=== PATIENT | female | born 1985 | race Caucasian/White ===

== ENCOUNTER → 2020-01-12 07:04 | Outpatient (CLI) | payer OTHER, SELFPAY ==
--- NOTE | ~2020-01-12 | MR_ITS ---
EXAMINATION: MR cervical spine wo con DATE: 01/12/2020 07:54 INDICATION: Neck pain with numbness and tingling radiating down the left shoulder. TECHNIQUE: Magnetic resonance imaging (MRI) of the cervical spine was performed without intravenous c ontrast. Sequences included sagittal T2-weighted FSE, sagittal T2-weighted FS FSE, sagittal T1-weight ed FSE, axial MERGE and axial T2-weighted FSE. COMPARISON: None FINDINGS: Straightening of the normal cervical lordosis. Vertebral body heights are normal. T1 and T2 hyperint ense hemangiomas at the T1 vertebral body and C7 spinous process. Marrow signal is otherwise normal. Mild disc height loss with annular fissure and disc extrusion at C5-C6. Cord signal intensity is norm al. Cervical soft tissues are unremarkable. The following disc levels are specifically discussed: C2-C3: The disc does not extend beyond the endplate margin. There is no uncovertebral joint osteoarth ritis. There is mild bilateral facet joint osteoarthritis. There is no neural foraminal stenosis. The re is no central canal stenosis. C3-C4: The disc does not extend beyond the endplate margin. There is no uncovertebral joint osteoarth ritis. There is mild bilateral facet joint osteoarthritis. There is no neural foraminal stenosis. The re is no central canal stenosis. C4-C5: The disc does not extend beyond the endplate margin. There is mild bilateral uncovertebral richard nt osteoarthritis. There is mild bilateral facet joint osteoarthritis. There is no neural foraminal s tenosis. There is no central canal stenosis. C5-C6: Posterior disc extrusion with disc material extending up to 3 mm caudal to the level of the pina perior endplate of C6. There is moderate bilateral uncovertebral joint osteoarthritis. There is mild left and minimal right facet joint osteoarthritis. There is mild bilateral neural foraminal stenosis. There is mild central canal stenosis with slight indention of the ventral surface of the cord. C6-C7: The disc does not extend beyond the endplate margin. There is no uncovertebral joint osteoarth ritis. There is mild right and mild to moderate left facet joint osteoarthritis. There is no neural f oraminal stenosis. There is no central canal stenosis. C7-T1: The disc does not extend beyond the endplate margin. There is mild bilateral uncovertebral richard nt osteoarthritis. There is moderate left and mild to moderate right facet joint osteoarthritis. Ther e is mild bilateral neural foraminal stenosis. There is no central canal stenosis. IMPRESSION: 1. Mild cervical spondylosis most notable for annular fissure and disc extrusion at C5-C6 resulting i n mild central canal stenosis. Reviewed, dictated and finalized at location A. IMPRESSION: 1. Mild cervical spondylosis most notable for annular fissure and disc extrusio n at C5-C6 resulting in mild central canal stenosis.
== END ==
DX: M54.2 Cervicalgia (principal); R20.0 Anesthesia of skin; R20.2 Paresthesia of skin; M47.812 Spondylosis without myelopathy or radiculopathy, cervical region; M48.02 Spinal stenosis, cervical region
CPT/HCPCS: 72141

== ENCOUNTER 2023-07-31 22:37 | Emergency (ER) | payer OTHER, SELFPAY ==
[2023-07-31 22:41] VITALS: BP 120/77; PULSE 107; RESP 18; TEMP 37; O2SAT 100
--- NOTE | 2023-07-31 23:30 | PC.NURSE ---
pt. ambulatory to front end web developer stating I am just going to go home. PT. NAD upon departure.
== END 2023-08-01 00:58 | disposition left against medical advice (07) ==
LOC: ANHED 08-01 00:39
DX: R50.9 Fever, unspecified (principal)
CPT/HCPCS: 99199

== ENCOUNTER 2025-03-11 02:29 | Day surgery (SDC) | payer OTHER, SELFPAY ==
[2025-03-02 14:34] VITALS: BMI 46.6
--- NOTE | 2025-03-02 14:35 | PC.NURSE ---
Report to the Outpatient Waiting Room, entrance under the green pavilion located off [facility], at time _0730_ on date _[id number]_. Planned Procedure Time: _0930_.? Time changes happen often and if your time is changed the preop area will call you the afternoon before. - You and your visitor will be asked to self-screen and do not enter if you have any COVID symptoms. Please call surgeon if you need to reschedule. - A mask is optional within the hospital at this time. Patients may have clear liquids (water, carbonated beverages, clear teas, apple juice) until 3 hours prior to surgery with a maximum of 20 ounces. - No food from midnight until time of surgery and no smoking, or chewing tobacco (or any form of nicotine). No chewing gum, candy or mints. Take only the following medications with a SIP of water on the morning of surgery: ___Symbicort, Spiriva and if needed Albuterol DO NOT STOP ANY OF YOUR OTHER PRESCRIPTION MEDICATIONS PRIOR TO SURGERY EXCEPT THE FOLLOWING Hold all vitamins and supplements for 3 days per anesthesiologist. Medications to discontinue per physician Date to take last soxn___[phone]____ Please no make-up, nail italian, hairspray, perfume, deodorant, or body powder the day of surgery.? No jewelry (including any body piercings) or valuables the day of surgery, leave them at home.? Please take a shower or bath the night before, or the morning of, surgery with an antibacterial soap.? Wear comfortable, loose fitting clothing.? - Jewelry must be removed prior to entering the operating room.? Rings and piercings that are not removed may be cut off. - The hospital will not accept responsibility for valuables.? - Please leave all valuables, including medications, at home the day of surgery. If you are going home after surgery, a licensed rickshaw driver must drive you home.? - NO public transportation without another adult if you receive anesthesia. - We recommend that an adult stay with you for 24 hours following discharge. - We also recommend that you do not drive, make important decision, drink alcoholic beverages, or take any drugs that were not prescribed by your health care provider for at least 24 hours after your discharge time. Follow any additional instructions given to you from your surgeon. Telephone instructions given to __Yoselin___and asked if any additional questions and then verbalized understanding. Patient advised to call surgeon office or pre surgery nurse liaison [phone] if any additional questions.
--- OUTSIDE RECORDS SUMMARY | 2025-03-11 02:47 | XMS_ITS | Data Portability ---
Author Organization [facility] [place] Address [address] [place] [address] Assessment No assessment recorded. Plan of Treatment Reminders Order Date Submit Date Provider Last Modified By Organization Details Last Modified Time Details Appointments None recorded. Lab None recorded. Referral None recorded. Procedures None recorded. Surgeries None recorded. Imaging None recorded. Medication Orders Bisi Allergy 180 mg tablet 2020 [facility], [address] [place] [address], [id number], 13:10:23 montelukas t 10 mg tablet 2020 [facility], [address] [place] [address], [id number], 13:10:21 losartan 25 mg tablet 2020 [facility], [address] [place] [address], [id number], 13:10:21 Qvar RediHaler 80 mcg/actuat ion HFA breath activated aerosol 2020 [facility], [address] [place] [address], [id number], 11:07:06 Ventolin HFA 90 mcg/actuat ion aerosol inhaler 2020 [facility], [address] [place] [address], [id number], 10/25/202 1 11:07:06 Zithromax Z-Allen 250 mg tablet 2020 021 [facility], [address] [place] [address], [id number], 1 11:07:07 albuterol sulfate 2.5 mg/3 mL (0.083 %) solution for nebulizati on 2020 [facility], [address] [place] [address], [id number], 1 11:07:05 Medrol (Allen) 4 mg tablets in a dose pack 2020 021 [facility], [address] [place] [address], [id number], 1 11:07:04 Medrol (Allen) 4 mg tablets in a dose pack 2020 021 [facility], [address] [place] [address], [id number], 1 14:08:31 Zithromax Z-Allen 250 mg tablet 2020 021 [facility], [address] [place] [address], [id number], 1 14:04:31 Qvar RediHaler 80 mcg/actuat ion HFA breath activated aerosol 2020 021 [facility], [address] [place] [address], [id number], 1 15:03:27 Ventolin HFA 90 mcg/actuat ion aerosol inhaler 2020 021 [facility], [address] [place] [address], [id number], 1 15:03:25 albuterol sulfate 2.5 mg/3 mL (0.083 %) solution for nebulizati on 2020 [facility], [address] [place] [address], [id number], 15:03:26 Zithromax Z-Allen 250 mg tablet 2020 [facility], [address] [place] [address], [id number], 12:37:02 Zithromax Z-Allen 250 mg tablet 2020 [facility], [address] [place] [address], [id number], 12:37:02 Medrol (Allen) 4 mg tablets in a dose pack 2020 [facility], [address] [place] [address], [id number], 14:16:11 Patient TargetsNo targets recorded. Patient Instructions Encounter Date Encounter Id Patient Instructions Last Modified By Organization Details Last Modified Time 05/08/2021 [id number] controlling your asthma: care instructions [facility] Not available 05/08/2021 15:02:41 learning about asthma [facility] Not available 05/08/2021 15:02:42 05/26/2021 [id number] chronic obstructive pulmonary disease (COPD): care instructions [facility] Not available 05/26/2021 14:05:22 learning about copd and how to prevent lung infections si Not available 05/26/2021 14:05:22 08/07/2021 [id number] bronchitis: care instructions [facility] Not available 08/07/2021 11:05:10 08/11/2021 [id number] seasonal allergies: care instructions [facility] Not available 08/11/2021 13:09:27 Reason for Referral None Reported. Problems Name Problem SNOMED Code Status Onset Date Resolution Date Notes Provider Name and Address Organization Details Recorded Time Acute bronchitis 99429478 Active Not Available [facility] 07:05:11 Hypothyroi dism 87437711 Active Not Available [facility] 3 07:05:12 Influenza 0809176 Active Not Available [facility] 3 07:05:12 Asthma 533972304 Active Not Available [facility] 3 07:05:11 Acute otitis media 5828829 Active Not Available [facility] 3 07:05:12 Obesity 402195717 Active Not Available [facility] 3 07:05:12 Anterior knee pain 308880489 Active Not Available [facility] 3 07:05:11 Migraine 60725182 Active Not Available [facility] 3 07:05:12 Lesion of scalp 587453759657 Active Not Available [facility] 3 07:05:12 Tinea corporis 57289929 Active Not Available [facility] 3 07:05:12 Problem Notes None recorded. Procedures Surgical History Date Name Laterality Status Provider Name and Address Organization Details Recorded Time Tubal Ligation completed Fern Rena [place] - [place] 09/08/2014 16:00:57 Tonsillectomy completed Fern Rena [place] - [facility] 09/08/2014 16:00:57 Imaging Results None recorded. Procedure Notes None recorded. Medical Equipment None Reported. Allergies Allergen ID Allergen Name Allergen Category Reaction Reaction Severity Criticality Documentation Date Start Date Code Code System Note Provider Name and Address Organization Details Recorded Time 548707 Product containin g penicilli n (product) medicatio n facial swelling severe Not available 02/05/2020 98864 8001 SNOMED KELSEY Fishman, [place] - [place] 0 12:12:53 222669 theophyll ine medicatio n Not available Not available Not available 02/05/2020 22081 RxNorm Aniyah Morgan MA null, [place] - [place] 0 12:14:17 Medications Name Sig Start Date Stop Date Status Note LastModified by Organization Details LastModified Time cyclobenzap rine 10 mg tablet TAKE 1 TABLET BY MOUTH THREE TIMES DAILY NEEDED active Not Available Not Available No t Available methocarbam ol 500 mg tablet Take 2 tablets 3 times a day by oral route as needed for 10 days. 07/17 completed Not Available Not Available Not Available Qvar 80 mcg/actuati on Metered Aerosol oral inhaler INHALE 2 PUFF(S) TWICE A DAY BY MOUTH FOR BEST RESULTS USE 10 MINUTES AFTER USING ALBUTEROL INHALER 02/04 completed Not Available Not Available Not Available bupropion HCl SR 150 mg tablet,12 hr sustained-r elease TAKE 1 TABLET(S) TWICE A DAY BY ORAL ROUTE DIRECTED FOR APPETITE CONTROL 03/05 completed Not Available Not Available Not Available prednisone 10 mg tablet 12/27 completed Not Available Not Available Not Available gabapentin 600 mg tablet TAKE ONE TABLET BY MOUTH THREE TIMES DAILY 12/27 completed Not Available Not Available Not Available ipratropium 0.5 mg-albutero l 3 mg (2.5 mg base)/3 mL nebulizatio n soln Inhale 3 mL 4 times a day by nebulizat ion route. 07/23 completed Not Available Not Available Not Available clindamycin HCl 300 mg capsule 12/27 completed Not Available Not Available Not Available albuterol sulfate 2.5 mg/3 mL (0.083 %) solution for nebulizatio n INHALE 1 VIAL THREE TIMES DAILY BY NEBULIZAT ION ROUTE NEEDED active Not Available Not Available No t Available azithromyci n 250 mg tablet TAKE 2 TABLETS (500 MG) BY ORAL ROUTE ONCE DAILY FOR 1 DAY THEN 1 TABLET (250 MG) BY ORAL ROUTE ONCE DAILY FOR 4 DAYS, take after meal. active Not Available Not Available No t Available ibuprofen 800 mg tablet 12/27 completed Not Available Not Available Not Available sulfamethox azole 400 mg-trimetho prim 80 mg tablet 12/27 completed Not Available Not Available Not Available meloxicam 15 mg tablet TAKE 1 TABLET BY MOUTH EVERY DAY active Not Available Not Available No t Available naltrexone 50 mg tablet TAKE 1 TABLET(S) EVERY DAY BY ORAL ROUTE DIRECTED FOR APPETITE CONTROL 03/05 completed Not Available Not Available Not Available prednisone 20 mg tablet 12/27 completed Not Available Not Available Not Available clindamycin HCl 150 mg capsule Take 2 capsules 3 times a day by oral route after meals for 6 days. 07/17 completed Not Available Not Available Not Available promethazin e 6.25 mg-codeine 10 mg/5 mL syrup 07/17 completed Not Available Not Available Not Available ciprofloxac in 500 mg tablet Take 1 tablet every 12 hours by oral route with meals for 10 days. 12/27 completed Not Available Not Available Not Available sulfamethox azole 800 mg-trimetho prim 160 mg tablet 07/17 completed Not Available Not Available Not Available benzonatate 100 mg capsule 12/27 completed Not Available Not Available Not Available nitrofurant oin macrocrysta l 100 mg capsule 07/17 completed Not Available Not Available Not Available nystatin 100,000 unit/gram topical cream APPLY TO THE AFFECTED AREA(S) BY TOPICAL ROUTE 2 TIMES PER DAY 07/17 completed Not Available Not Available Not Available losartan 25 mg tablet TAKE 1 TABLET BY MOUTH EVERY DAY DIRECTED active Not Available Not Available No t Available gabapentin 300 mg capsule Take 1 capsule 3 times a day by oral route for 30 days. 07/17 completed Not Available Not Available Not Available montelukast 10 mg tablet TAKE 1 TABLET BY MOUTH EVERY DAY DIRECTED active Not Available Not Available No t Available Cheratussin AC 10 mg-100 mg/5 mL oral liquid Take 10 mL every 6 hours by oral route as needed for 5 days. 07/23 completed Not Available Not Available Not Available ibuprofen 600 mg tablet 07/17 completed Not Available Not Available Not Available levofloxaci n 500 mg tablet 12/27 completed Not Available Not Available Not Available Robafen 100 mg/5 mL oral liquid 07/23 completed Not Available Not Available Not Available methylpredn isolone 4 mg tablets in a dose pack Take 1 dose pk every day by oral route with meals for 6 days. active Not Available Not Available No t Available norethindro ne (contracept navjot) 0.35 mg tablet TAKE 1 TABLET BY MOUTH EVERY DAY active Not Available Not Available No t Available ondansetron 4 mg disintegrat ing tablet 07/17 completed Not Available Not Available Not Available albuterol sulfate concentrate 5 mg/mL(0.5 %) solution for nebulizatio n Inhale 0.5 mL twice a day by inhalatio n route as needed for 30 days. 07/17 completed Not Available Not Available Not Available fluticasone propionate 50 mcg/actuati on nasal spray,suspe nsion 03/05 completed Not Available Not Available Not Available naproxen 500 mg tablet TK 1 T PO BID WF 11/14 completed Not Available Not Available Not Available Ventolin HFA 90 mcg/actuati on aerosol inhaler INHALE 2 PUFFS EVERY 4 HOURS NEEDED active Not Available Not Available No t Available nitrofurant oin monohydrate /macrocryst als 100 mg capsule 03/05 completed Not Available Not Available Not Available Vinate One 60 mg iron-1 mg tablet 07/23 completed Not Available Not Available Not Available Aerochamber Plus Flow-Vu active Not Available Not Available Not Available Bisi Allergy 180 mg tablet Take 1 tablet every day by oral route as directed for 30 days. 2020 active Not Available Not Available Not Avai lable Qvar RediHaler 80 mcg/actuati on HFA breath activated aerosol INHALE 2 PUFF(S) TWICE A DAY BY MOUTH FOR BEST RESULTS USE 10 MINUTES AFTER USING ALBUTEROL INHALER active Not Available Not Available No t Available Afluria Quad (PF) 60 mcg (15 mcg x 4)/0.5 mL IM syringe 03/05 completed Not Available Not Available Not Available Flublok Quad (PF) 180 mcg (45 mcg x 4)/0.5 mL IM syringe PHARMACIS T ADMINISTE RED IMMUNIZAT ION ADMINISTE RED AT TIME OF DISPENSIN G 11/14 completed Not Available Not Available Not Available Vitals Date Recorded Body height Body mass index (BMI) Body weight Heart rate Oxygen saturation Oxygen saturation in Arterial blood by Pulse oximetry Systolic blood pressure Diastolic blood pressure Provider Name and Address Organization Details Last Updated DateTime 1 162.56 cm 43.8 kg/m2 674470. 34 g 98 /min 95 % 95 % 118 mm[Hg] 78 mm[Hg] Aniyah Morgan [place] - [place] 12:46:13 Social History Question Answer Notes LastModified by Organizat ion Details LastModified Time Tobacco Smoking Status Former Smoker Fern adams, [place] - [facility] 09/08/2014 16:00:57 What Was The Date Of Your Most Recent Tobacco Screening? 05/26/2021 [email or web address] Information not available 05/26/2021 How Much Tobacco Do You Smoke? No Information not available 02/05/2020 On What Date Was Tobacco Cessation Counseling Provided? 02/05/2020 Information not available 02/05/2020 Sex: Unknown Functional Status Question Answer Note LastModified by Organizat ion Details LastModified Time Do you or have you ever used smokeless tobacco? Never used smokeless tobacco Information not available 02/05/2020 Do you or have you ever used e-cigarettes or vape? Never used electronic cigarettes Information not available 02/05/2020 Mental Status None recorded. Family History Relationship Description Onset Age of this Age Resolved Age Notes LastModified by Organization Details LastModified Time Mother Asthma [email or web address] Not available 02/05/2020 12:15:58 Mother Chronic obstructive pulmonary disease [email or web address] Not available 2019 12:16:08 Mother Diabetes mellitus [email or web address] Not available 2019 12:16:15 Mother Hypertensive disorder [email or web address] Not available 2019 12:16:26 Medical History Condition Response Anemia Y Headaches Y Asthma Y Allergies Y Gynecological History Statement/Question Response Flow Moderate Date of LMP 02/05/2020 Menses Monthly Y Age at Menarche 10 Current Control Method Tubal Ligat ion Age at First Child 19 LMP Definite Obstetrics History GPAL:G 4 P 3 1 0 3 Type Value Full Term 3 Premature 1 Living 3 Total 4 Immunizations Vaccine Type Date Status Note Provider Nam e and Address Organization Details Recorded Time Influenza, split virus, trivalent, PF 4 completed Not Available [facility] 10/31/2019 02:33:25 Influenza, split virus, quadrivalent, preservative 5 completed Not Available [facility] 10/31/2019 02:32:09 Past Encounters Encounter ID Performer Location Encounter Start Date Encounter Closed Date Diagnosis/Indication Diagnosis SNOMED-CT Code Diagnosis ICD10 Code Diagnosis Note [id number] [facility] [address] [place] [address] [id number] 09/08/2014 15:29:08 09/10/2014 15:43:52 Influenza 5334308 Asthma 055111068 [id number] MD Rodri Sofia (Adult Med) [address] [place] [address] [id number] 0 11/16/2014 09:39:19 11/16/2014 11:05:55 Asthma 757642667 Influenza 9098494 Acute bronchitis 45105427 Carrier of cystic fibrosis gene mutation 774699965 Hypothyroidism 91605768 [id number] Melissa Mcfadden MD [facility] (Adult Med) [address] [place] [address] [phone] 12/15/2014 09:36:02 12/15/2014 14:42:38 Acute otitis media 6618564 Asthma 340753958 Carrier of cystic fibrosis gene mutation 702557663 Hypothyroidism 39038826 Obesity 682491434 [id number] Melissa Mcfadden MD [facility] (Adult Med) [address] [place] [address] [phone] 0 04/11/2015 16:10:53 04/11/2015 17:30:08 Anterior knee pain 985367237 Asthma 114226030 [id number] Melissa Mcfadden MD [facility] (Adult Med) [address] [place] [address] [id number] 0 2015 15:04:17 2015 15:41:34 Anterior knee pain 257225520 Hypothyroidism 98494477 Obesity 445158504 [id number] Melissa Mcfadden MD [facility] (Adult Med) [address] [place] [address] [id number] 0 07/26/2015 12:03:48 07/26/2015 13:27:55 Anterior knee pain 632347532 M25.569 Asthma 190410531 J45.90 9 Hypothyroidism 74949610 E03.9 Obesity 253008386 E66.9 Carrier of cystic fibrosis gene mutation 921161466 Z14.1 Administra tion of influenza vaccine 92096472 Z23 [id number] Melissa Mcfadden MD [facility] (Adult Med) [address] [place] [address] [id number] 0 08/30/2015 14:21:28 08/31/2015 09:50:13 Acute bronchitis 18772704 J20.9 Asthma 961458228 J45.90 9 Obesity 284833708 E66.9 Migraine 21195243 G43.90 9 [id number] Melissa Mcfadden MD [facility] (Adult Med) [address] [place] [address] [id number] 0 09/28/2015 11:54:54 09/29/2015 12:30:18 Asthma 470431723 J45.909 Lesion of scalp 57614860 91 00 L98.9 Obesity 706779643 E66.9 Tinea corporis 75271621 B35.4 [id number] MD Rodri Sofia (Adult Med) [address] [place] [address] [id number] 0 01/05/2016 12:11:53 01/05/2016 17:29:29 Acute bronchitis 28932044 J20.9 Asthma 538023078 J45.90 9 Carrier of cystic fibrosis gene mutation 106113652 Z14.1 [id number] MD Rodri Sofia (Adult Med) [address] [place] [address] [id number] 0 08/02/2016 12:08:29 08/02/2016 13:35:50 Furuncle 461560635 L02.92 [id number] [facility] [address] [place] [address] [id number] 01/01/2017 16:08:52 01/02/2017 13:36:19 Acute bronchitis 92043882 J20.9 Asthma 773481654 J45.90 9 Morbid obesity 403375559 E66.01 Diet, exercise and lose weight she agreed. [id number] MD Rodri Sofia (Adult Med) [address] [place] [address] [id number] 0 07/17/2017 14:46:25 07/18/2017 11:47:32 Acute bronchitis 10991686 J20.9 Cellulitis 356188140 L03 .90 Will be put on cipro 500 mg twice/day for 10 dys. Asthma 285511314 J45.90 9 [id number] MD Rodri Sofia (Adult Med) [address] [place] [address] [id number] 0 12/27/2017 11:42:08 12/27/2017 13:43:17 Asthma 782053095 J45.909 On inhalers. Ex-smoker 7078580 Z87.89 1 Morbid obesity 832509959 E66.01 Diet, exercise and lose weight she agreed. williing to try naltrexone and wellbutrin sr to lose weight. [id number] MD Rodri Sofia (Adult Med) [address] [place] [address] [id number] 0 03/07/2018 16:51:35 03/11/2018 11:54:37 Asthmatic bronchitis 490543124 J45.909 Go to ER any time for any concern she understood and agreed. [id number] [facility] [address] [place] [address] [id number] 0 07/23/2018 12:13:26 07/24/2018 09:48:30 Acute bronchitis 24215251 J20.9 Asthma 999416452 J45.90 9 On inhalers. [id number] [facility] [address] [place] [address] [id number] 03/05/2019 16:00:57 03/05/2019 17:30:54 Acute otitis media 7899556 H66.91 Acute bronchitis 6395251 2 J20.9 Asthma 573593614 J45.90 9 On inhalers. [id number] [facility] [address] [place] [address] [phone] 0 07/23/2019 16:29:19 07/23/2019 18:02:08 Acute respiratory infections 417888021 J22 She wants steroid pill aling with antibiotic s. [id number] KULWANT CHILDS [facility] (Adult Med) [address] [place] [address] [id number] 02/05/2020 10:43:01 02/08/2020 12:27:27 Asthma 137172731 J45.909 Hx of well controlled asthmaUses her albuterol inhaler infrequent ly, usually only a couple times per month- continue with albuterol inhaler and nebulizer- continue with maintenanc e inhaler Acute resp iratory infections 250990433 J22 Complainin g of a head cold x 3-4 days, symptoms including nasal congestion , mild bilateral ear pain, dry cough, mild wheezing, and shortness of breath.She has a history of asthma, been using her albuterol inhaler more frequently these past couple days, every 4 hours and using albuterol nebulizer PRN.When this occurs, it usually progresses into a full blown infection and I require abx and steroids- will send steroid due to hx of wheezing- will send azithromyc in, encouraged her to give it a couple days before starting to see if symptoms go away on their own- Drink lots of fluids, whatever you like except for alcoholic beverages. - Run a cool-mist humidifier in your room at night - Get extra rest and do not over-exert yourself. [id number] MD Rodri Sofia (Adult Med) [address] [place] [address] 0 11/14/2020 08:25:17 11/15/2020 08:30:32 Acute exacerbation of chronic obstructive pulmonary disease 264005440 J44.1 dISCUSSED WITH PATIENT, SHE wants MEDICATION S refilledD BELOW. [id number] MD Rodri Sofia (Adult Med) [address] [place] [address] [id number] 05/08/2021 14:14:20 05/15/2021 22:13:48 Acute otitis media 0051391 H66.91 Discussed wit patient, she agreed as ordered. Asthma 907290404 J45.90 9 On inhalers. [id number] MD Rodri Sofia (Adult Med) [address] [place] [address] [id number] 0 05/26/2021 12:11:46 05/29/2021 12:36:11 Acute exacerbation of chronic obstructive pulmonary disease 575072626 J44.1 DISCUSSED WITH PATIENT, SHE wants MEDICATION S refill BELOW. Advised her to go to ER any time for any concern. She agreed. Chronic ob structive pulmonary disease 46566213 J44.9 Has inhalers at home. [id number] MD Rodri Sofia (Adult Med) [address] [place] [address] [id number] 0 08/07/2021 08:21:56 08/09/2021 14:17:58 Acute bronchitis 92357925 J20.9 Raji cold , discussed with patient, declines covid virus test. Wants abx , steroid and refill med. Asthma 551880229 J45.90 9 On inhalers. [id number] MD Rodri Sofia (Adult Med) [address] [place] [address] 08/11/2021 12:31:54 08/15/2021 15:13:08 Hypertensive disorder 86475435 I10 Advised to stay on low salt diet, avoid NSAID such as ibuprofen, naproxen or OTC decongesta nt if possible. Seasonal allergy 9815219 04 J30.2 Will try some medication s as ordered today. Health Concerns Section Related Observation LastModified by Organization Detai ls LastModified Time None Recorded Concern Status LastModified by Organization Details LastModified Time None Recorded Advance Directives Directive None Recorded Payers Encounter Date Sequence Insurance Name Policy Number Policy Miranda Covered Member ID Miranda Member ID Guarantor Name 11/14/2020 1 [employer] (MEDICAID HMO) [id number] Yoselin Casas [id number] Yoselin Casas 05/08/2021 1 [employer] (MEDICAID HMO) [id number] Yoselin Casas [id number] Yoselin Casas 05/26/2021 1 [employer] (MEDICAID HMO) [id number] Yoselin Casas [id number] Yoselin Casas 08/07/2021 1 [employer] (MEDICAID HMO) [id number] Yoselin Casas [id number] Yoselin Augusto 08/11/2021 1 [employer] (MEDICAID HMO) [id number] Yoselin Casas [id number] Yoselin Casas Notes Date Note Type Note Provider Name and Address Organization Details Recorded Time 11/14/2020 text/html This is phone visit, due to torres virus pandemic, allergic tp slowbid and penicillins., history of COPD. ex-smoker. sick felling, she said that she did not go to any where, declinEs COVID -19 TEST. RATHER WANTS REFILL HER ANTIBIOTICS AND SHORT TERM STEROID. AND ADVISED TO GO TO er IN CASE ANY TIME FOR ANY CONCERN, SHE AGREES. Melissa Mcfadden MD Attn: Accounting,[address] [facility], [place], [address], [facility] [place] - [facility] 11/14/2020 12:07:52 05/08/2021 text/html Phone visit, due to torres virus pandemic, she understood and agreed, allergic to penicillins and theophylline, C/C ear hurting , wants to try some abx and refill other regular medications. Melissa Mcfadden MD Attn: Accounting,[address] [facility], [place], [address], [place] - [facility] 05/08/2021 15:02:47 05/26/2021 text/html Phone visit, due to torres virus pandemic, allergic to penicllins and theophylline. histroy of COPD and former smoker , had covid infection in February 2021, recently chest congestion, wants abx and short term steroid, declines re- test covid 19. Melissa Mcfadden MD Attn: Accounting,[address] [facility], [place], [address], [place] - [facility] 05/26/2021 14:05:45 08/07/2021 text/html Phone visit, due to torres virus pandemic., allergic to penicillins and theophylline, C/C Chest cold, chest congestion, no fever, declines for covid test, wants refill her regular medications and ABX and shortterm steroid. Melissa Mcfadden MD Attn: Accounting,[address] [facility], [place], [address], [place] - [facility] 08/07/2021 11:05:19 08/11/2021 text/html Office visit, 1. Elevated diastolic hypertension, home monitor showed elevated diastolic blood pressure, today her reading on left arm in sitting position is 130 /90 mm Hg . 2. Seasonal allergy with eyes irritation and running nose, nasal spray did not work, discussed with patient, agreed to try medications as ordered today, she will keep this office informed. Melissa Mcfadden MD Attn: Accounting,[address] [facility], [place], [address], [place] - [facility] 08/11/2021 13:10:00 OBGyn Episode No OBEpisode recorded.
--- OUTSIDE RECORDS SUMMARY | 2025-03-11 02:47 | XMS_ITS | Data Portability ---
Author Organization [place] [facility] Main Office Address [address] [place] [address] Care Team Providers Care Limb Driver Name Role Phone JAIRO FRANKLIN Primary Care Provider JAIRO FRANKLIN Referring Provider [phone] Assessment Encounter Date Assessment Date Assessment LastModified by Organization Details LastModified Time 10/15/2024 10/15/2024 The patient has chronic low back pain that comes and goes she was treated 6 weeks ago and is doing pretty well she states for the most part her pain is livable as long as she takes the diclofenac and Tylenol. We did talk about doing another course of formal physical therapy she declined she would rather do it on her own we also talked about the possibility of an MRI scan but she states she wants to wait and see how things go she is going to continue with the conservative measures on her own at home. If her symptoms worsen or change she will call immediately we can get the MRI scan any time and consider lumbar epidural steroid injections if necessary. She can also call us for formal therapy orders if she wants. I will see her back as needed she is doing pretty well today. She voiced understanding and agreed with the above plan she will call for any further problems difficulties or questions. Not available 10/15/2024 15:30:02 02/04/2025 02/04/2025 The patient has chronic low back pain particularly localized to the bilateral sacroiliac regions. We talked about further treatment options today she has been on diclofenac chronically we are going to try something different we will switch her to Celebrex 200 mg daily. She had declined formal therapy previously I have encouraged her to try this and see if this helps. In the meantime she wanted to try more shots of cortisone therefore her request under sterile conditions I injected the patient's bilateral sacroiliac bursa in the office with 4 cc of 0.5% bupivacaine and 20 mg of Kenalog each. The patient tolerated both injections well. We have talked again about weight loss this may help significantly also. Her BMI is about 46. This may help her back and also be helpful for her penitentiary health. She voiced understanding agrees with the above plan she will call for any further problems difficulties or questions. I will see her back in a couple of months to see what impact treatment has had. If her symptoms suddenly worsen or change she will call a repeat MRI scan may be indicated if her symptoms continue to be significant. Not available 02/04/2025 15:05:42 Plan of Treatment Reminders Order Date Submit Date Provider Last Modified By Organization Details Last Modified Time Details Appointments Any 5 2024 02:00P M KULWANT Tinsley Not available Not available Not available Follow Up 30 2024 02:30P M ZUHAIR Bartlett Not available Not available Not available Lab None recorded. Referral physical therapist referral - Please contact patient to schedule. ..Thank you 2024 025 [email or web address] [facility], [address] [place], [address], 02/18/2025 08:17:30 Procedures injection /aspirati on joint/bur sa (PROC) 2024 025 [email or web address] In-Office Order, Internal Use Only DO Not Attach Compendium DO Not Attach Compendium, Do Not Delete/merge, [id number] 02/04/2025 14:58:21 Surgeries None recorded. Imaging None recorded. Medication Orders Spiriva Respimat 1.25 mcg/actua tion solution for inhalatio n 2024 025 [facility][id number], [address], [place], [place], [id number], 03/02/2025 14:32:08 bupivacai ne HCl 0.5 % (5 mg/mL) injection solution [email or web address] [facility] #72236, [address], [place], [place], [id number], 02/04/2025 16:07:58 Kenalog 10 mg/mL suspensio n for injection [address] [facility] #82260, [address], [place], [place], [id number], 02/04/2025 16:07:58 celecoxib 200 mg capsule [address] [facility] #05320, [address], [id number], 02/04/2025 16:07:58 diclofena c sodium 75 mg tablet,de layed release [email or web address] [place] [address] [facility] #52737, [address], [id number], 03/02/2025 13:55:[address] 10 mg tablet 2024 025 [facility] #69757, [address] [place], [place], [id number], 01/29/2025 11:42:35 omeprazol e 40 mg capsule,d elayed release 2024 025 [facility] #69674, [address], [id number], 01/29/2025 11:42:34 cholecalc iferol (vitamin D3) 50 mcg (2,000 unit) capsule 2024 025 [facility] #95473, [address], [id number], 01/29/2025 11:42:33 losartan 50 mg tablet [address] [facility] #39610, [address], [place], [place], [id number], 01/29/2025 11:42:36 Medrol (Allen) 4 mg tablets in a dose pack [address] [facility] #50460, [address], [place], [place], [id number], 03/02/2025 13:56:14 azithromy nehal 250 mg tablet [address] [facility] #13726, [address] [place], [place], [id number], 03/02/2025 13:55:28 diclofena c sodium 75 mg tablet,de layed release [address] [employer] [facility] #72223, [address] [place], [place], [id number], 03/02/2025 13:55:23 albuterol sulfate HFA 90 mcg/actua tion aerosol inhaler [address]43372, [address] [place], [place], [id number], 12/01/2024 15:50:09 albuterol sulfate 2.5 mg/3 mL (0.083 %) solution for nebulizat ion [address]91, [address] [place], [place], [id number], 12/01/2024 15:50:09 Depo-Medr ol 80 mg/mL suspensio n for injection 2024 025 Not available 01/29/2025 11:27:48 prednison e 20 mg tablet [address] [facility] #96394, [address] , [place], [place], [id number], 01/29/2025 11:28:01 cholecalc iferol (vitamin D3) 50 mcg (2,000 unit) capsule 2024 025 [facility] #27109, [address] , [place], [place], [id number], 12/01/2024 15:53:50 sumatript an 100 mg tablet [address] [facility] #52844, [address] , [place], [place], [id number], 01/29/2025 11:28:35 cyanocoba dimas (vit B-12) 1,000 mcg sublingua l tablet 2024 025 [facility] #44969, [address] , [place], [place], [id number], 12/01/2024 15:53:51 Patient TargetsNo targets recorded. Patient InstructionsNo instructions recorded. Reason for Referral Physical Therapist Referral for Bilateral sacroiliac joint pain Please contact patient to schedule...Thank you Referring Physician: Jose Doyle, Orthopedic Surgery, Encounter Date: 02/04/2025 Results Created Date Observation Date Name Description Value Unit Range Abnormal Flag Note LastModifiedBy Organization Detail LastModifiedTime 03/02/2003/01/2025 imagi ng/di agnos tic resul t No observ ation record ed. [facility] [address], [place], [address], 03/02/2025 15:50:40 Result Notes None recorded. Problems Name Problem SNOMED Code Status Onset Date Resolution Date Notes Provider Name and Address Organization Details Recorded Time Allergic rhinitis 59274610 Active 2022 Not Available [facility] 3 19:29:27 Essential hypertens ion 10642078 Active 2022 Not Available [facility] 3 19:29:27 Low back pain 846150431 Active 2022 Not Available [facility] 3 19:29:27 Bilateral sacroilia c joint pain 87096802370 916397 Active 2022 Not Available [facility] 3 19:29:27 Acute right otitis media 019776039 Active 2022 Not Available [facility] 3 19:29:27 Pharyngit is 593324058 Active 2022 Not Available [facility] 3 19:29:27 Aphthous ulcer of mouth 620254151 Active 2022 Not Available [facility] 3 19:29:27 Hyperlipi demia 51208166 Active 2022 Terri Muir MD [address], [address], [place], [address] , [facility] 3 14:27:44 Hidradeni tis suppurati va 36508843 Active 2022 Terri Muir MD [address], [address], [place], [address] , [facility] 3 14:30:45 Acid reflux 810988725 Active 2022 Terri Muir MD [address], [address], [place], [address] , [facility] 3 06:34:31 Adult health examinati on Active 2023 KULWANT Mendieta [address], [address], [place], [address] , [facility] 4 14:46:37 Obese 026261399 Active 2023 KULWANT Mendieta [address], [address], [place], [address] , [place] [facility] 4 14:47:26 Degenerat ion of lumbar intervert ebral disc 38164518 Active 2023 KULWANT Tinsley [address], [address], [place], [address] , [place] [facility] 4 15:31:50 Sinusitis 88377481 Active 2023 KULWANT Mendieta [address], [address], [place], [address] , [place] [facility] 4 12:36:50 Nausea 533271366 Active 2023 KULWANT Mendieta [address], [address], [place], [address] , [place] [facility] 4 12:37:06 Migraine 01662781 Active 2024 KULWANT Mendieta [address], [address], [place], [address] , [place] [facility] 5 15:49:21 Serum vitamin B12 below reference range 914311935 Active 2024 KULWANT Mendieta [address], [address], [place], [address] , [place] [facility] 5 15:51:48 Vitamin D deficienc y 53624622 Active 2024 KULWANT Mendieta [address], [address], [place], [address] , [place] [facility] 5 15:52:26 Upper respirato ry infection 74002638 Active 2024 ZUHAIR Bartlett [address], [address], [place], [address] , [place] [facility] 5 11:39:08 Disorder of shoulder 025987520 Active 2020 Not Available [facility] 3 19:29:27 Backache 996920464 Active Not Available [facility] 3 19:29:27 Asthma 290233161 Active 2020 Not Available [facility] 3 19:29:27 Leukorrhe a 696200627 Completed Not Available [facility] 3 00:51:50 Hypertens navjot disorder 53948768 Active 2020 Not Available [facility] 3 19:29:27 Sprain of ankle 47181413 Completed Not Available [facility] 3 00:51:50 Pain of breast 58420564 Completed Not Available [facility] 3 00:51:51 Notes:Some problems listed i n Documents: #[id number], #[id number] could not be added to this patient's chart. Please review these documents and add these problems to the patient's chart manually as needed. Problem Notes None recorded. Procedures Surgical History Date Name Laterality Status Provider Name and Address Organization Details Recorded Time 08/06/20 23 Suture/Staple removal completed Terri Muir MD [address], [place], [address], [facility] 08/07/2023 06:57:21 05/28/20 23 Ortho - Cortisone Injection completed Ryne Franklin MD [address], [place], [address], [employer] [facility] 05/28/2023 15:04:32 04/30/20 23 Ortho - Cortisone Injection completed Ryne Franklin MD [address], [place], [address], [employer] [facility] [employer] [facility] 04/30/2023 15:51:21 09/20/20 16 Date of Last Pap Smear completed Not Available [facility] 12/12/2022 00:43:06 11/25/19 16 other completed Not Available [facility] 3 00:43:11 [employer] SET UP OPERATOR Procedure completed Not Available [facility] 12/12/2022 00:43:11 STE[employer] SET UP OPERATOR Procedure completed Not Available [facility] 12/12/2022 00:43:11 Tubal Ligation completed Not Available [facility] 12/12/2022 00:43:11 Tonsillectomy completed Not Available [facility] 12/12/2022 00:43:11 Imaging Results None recorded. Procedure Notes None recorded. Medical Equipment None Reported. Allergies Allergen ID Allergen Name Allergen Category Reaction Reaction Severity Criticality Documentation Date Start Date Code Code System Note Provider Name and Address Organization Details Recorded Time 1407 theophyll ine medicatio n rash Not available Not available 12/12/2022 13215 RxNorm as child Not Available [facility] 3 01:03:16 1408 Product containin g penicilli n (product) medicatio n hives severe Not available 12/12/2022 11516 8001 SNOMED Not Available [facility] 3 01:03:16 Medications Name Sig Start Date Stop Date Status Note LastModified by Organization Details LastModified Time losartan 50 mg tablet TAKE 1 TABLET BY MOUTH EVERY DAY DIRECTED active Not Available Not Available No t Available celecoxib 200 mg capsule TAKE 1 CAPSULE BY MOUTH EVERY DAY active Not Available Not Available No t Available cyclobenzap rine 10 mg tablet TAKE 1 TABLET BY MOUTH THREE TIMES DAILY 04/30 completed Not Available Not Available Not Available methocarbam ol 500 mg tablet active Not Available Not Available Not Available Qvar 80 mcg/actuati on Metered Aerosol oral inhaler 09/27 completed Not Available Not Available Not Available bupropion HCl SR 150 mg tablet,12 hr sustained-r elease 09/29 completed Not Available Not Available Not Available promethazin e-DM 6.25 mg-15 mg/5 mL oral syrup Take 5 mL every 4 hours by oral route as needed for 10 days. 01/29 completed Not Available Not Available Not Available prednisone 10 mg tablet TAKE 1 TABLET BY MOUTH THREE TIMES DAILY FOR 3 DAYS THEN TAKE 1 TABLET BY MOUTH TWICE DAILY FOR 2 DAYS THEN TAKE 1 TABLET BY MOUTH DAILY FOR 1 DAY 12/01 completed Not Available Not Available Not Available gabapentin 600 mg tablet active Not Available Not Available Not Available clindamycin HCl 300 mg capsule 02/03 completed Not Available Not Available Not Available albuterol sulfate 2.5 mg/3 mL (0.083 %) solution for nebulizatio n USE 3 ML VIA NEBULIZER THREE TIMES DAILY NEEDED active Not Available Not Available No t Available azithromyci n 250 mg tablet TAKE 2 TABLETS BY MOUTH FOR 1 DAY THEN TAKE 1 TABLET BY MOUTH DAILY FOR 4 DAYS 03/02 completed Not Available Not Available Not Available ibuprofen 800 mg tablet 02/03 completed Not Available Not Available Not Available sulfamethox azole 400 mg-trimetho prim 80 mg tablet 02/03 completed Not Available Not Available Not Available sumatriptan 100 mg tablet TAKE 1 TABLET BY MOUTH FOR 9 DAYS NEEDED 01/29 completed Not Available Not Available Not Available meloxicam 15 mg tablet TAKE 1 TABLET BY MOUTH EVERY DAY 04/30 completed Not Available Not Available Not Available naltrexone 50 mg tablet 09/29 completed Not Available Not Available Not Available ondansetron HCl 4 mg tablet TAKE 1 TABLET BY MOUTH EVERY 8 HOURS 08/25 completed Not Available Not Available Not Available bupivacaine HCl 0.5 % (5 mg/mL) injection solution Take 40 mg by injection route. 2024 active Not Available Not Available Not Avai lable prednisone 20 mg tablet Take 2 tabs PO twice daily for 2 days; 1 tab PO twice daily for 5 days; 1/2 tab PO twice daily for 2 days; 1/2 tab PO once for 1 day. TAKE 2ND DOSE EVERYDAY AT NOON-10 DAY COURSE 01/29 completed Not Available Not Available Not Available clindamycin HCl 150 mg capsule 01/07 completed Not Available Not Available Not Available promethazin e 6.25 mg-codeine 10 mg/5 mL syrup 09/29 completed Not Available Not Available Not Available ciprofloxac in 500 mg tablet 02/03 completed Not Available Not Available Not Available sulfamethox azole 800 mg-trimetho prim 160 mg tablet 08/06 completed Not Available Not Available Not Available omeprazole 40 mg capsule,del ayed release Take 1 capsule every day by oral route as directed for 90 days. 2024 active Not Available Not Available Not Avai lable Depo-Medrol 80 mg/mL suspension for injection Take 1 mL by injection route. 01/29 completed Not Available Not Available Not Available prednisone 10 mg tablets in a dose pack Take 1 tab by mouth, 3 times a day for 3 daysTake 1 tab by mouth 2 times a day for 2 daysTake 1 tab by mouth once a day for 1 day 10/02 completed Not Available Not Available Not Available Kenalog 10 mg/mL suspension for injection Take 40 mg by injection route. [address] [facility]: [phone] Not Available Not Available Not Available benzonatate 100 mg capsule 02/03 completed Not Available Not Available Not Available oseltamivir 75 mg capsule TAKE 1 CAPSULE BY MOUTH EVERY 12 HOURS FOR 5 DAYS FOR INFLUENZA 08/25 completed Not Available Not Available Not Available nitrofurant oin macrocrysta l 100 mg capsule 01/07 completed Not Available Not Available Not Available nystatin 100,000 unit/gram topical cream active Not Available Not Available Not Available losartan 25 mg tablet TAKE 1 TABLET BY MOUTH EVERY DAY 04/30 completed Not Available Not Available Not Available gabapentin 300 mg capsule active Not Available Not Available Not Available diclofenac sodium 75 mg tablet,tracie yed release TAKE 1 TABLET BY MOUTH TWICE DAILY NEEDED 03/02 completed Not Available Not Available Not Available montelukast 10 mg tablet TAKE 1 TABLET BY MOUTH EVERY DAY active Not Available Not Available No t Available cyanocobala min (vit B-12) 1,[address] 1 tablet twice a day by sublingua l route for 30 days. 2024 active Not Available Not Available Not Avai lable Cheratussin AC 10 mg-100 mg/5 mL oral liquid 12/01 completed Not Available Not Available Not Available ibuprofen 600 mg tablet 01/07 completed Not Available Not Available Not Available levofloxaci n 500 mg tablet 02/03 completed Not Available Not Available Not Available Robafen 100 mg/5 mL oral liquid 02/03 completed Not Available Not Available Not Available methylpredn isolone 4 mg tablets in a dose pack USE DIRECTED 03/02 completed Not Available Not Available Not Available albuterol sulfate HFA 90 mcg/actuati on aerosol inhaler INHALE 2 PUFFS BY MOUTH FOUR TIMES DAILY active Not Available Not Available No t Available norethindro ne (contracept navjot) 0.35 mg tablet TAKE 1 TABLET BY MOUTH EVERY DAY 09/27 completed Not Available Not Available Not Available ondansetron 4 mg disintegrat ing tablet Place 1 tablet 3 times a day by transling ual route as needed. 01/29 completed Not Available Not Available Not Available albuterol sulfate concentrate 5 mg/mL(0.5 %) solution for nebulizatio n active Not Available Not Available Not Available fluticasone propionate 50 mcg/actuati on nasal spray,suspe nsion 12/22 completed Not Available Not Available Not Available doxycycline hyclate 100 mg tablet TAKE 1 TABLET BY MOUTH TWICE DAILY FOR 10 DAYS 08/06 completed Not Available Not Available Not Available naproxen 500 mg tablet TK 1 T PO BID WF active Not Available Not Available No t Available nitrofurant oin monohydrate /macrocryst als 100 mg capsule 12/01 completed Not Available Not Available Not Available levalbutero l HFA 45 mcg/actuati on aerosol inhaler INHALE 2 PUFFS BY MOUTH FOUR TIMES DAILY active Not Available Not Available No t Available Symbicort 160 mcg-4.5 mcg/actuati on HFA aerosol inhaler INHALE 2 PUFFS BY MOUTH TWICE DAILY active Not Available Not Available No t Available cholecalcif hakeem (vitamin D3) 50 mcg (2,000 unit) capsule Take 1 capsule every day by oral route after meal(s) for 30 days. 2024 active Not Available Not Available Not Avai lable Vinate One 60 mg iron-1 mg tablet TK 1 C PO QD 12/01 completed Not Available Not Available Not Available Aerochamber Plus Flow-Vu 09/27 completed Not Available Not Available Not Available ropivacaine (PF) 5 mg/mL (0.5 %) injection solution Take 40 mg by injection route. 09/[address] [facility] [phone] Not Available Not Available Not Available Spiriva Respimat 2.5 mcg/actuati on solution for inhalation INHALE 2 PUFFS BY MOUTH EVERY DAY active Not Available Not Available No t Available Spiriva Respimat 1.25 mcg/actuati on solution for inhalation INHALE 2 PUFFS BY MOUTH EVERY DAY active Not Available Not Available No t Available Qvar RediHaler 80 mcg/actuati on HFA breath activated aerosol INHALE 2 PUFF(S) TWICE A DAY BY MOUTH FOR BEST RESULTS USE 10 MINUTES AFTER USING ALBUTEROL INHALER 04/30 completed Not Available Not Available Not Available Afluria Quad (PF) 60 mcg (15 mcg x 4)/0.5 mL IM syringe active Not Available Not Available N ot Available [facility] COVID-19 Antigen Rapid Home Test kit 09/01 completed Not Available Not Available Not Available Vitals Date Recorded Body height Body mass index (BMI) Body weight Provider Name and Address Organization Details Last Updated DateTime 10/15/2024 162.56 cm 46.3 kg/m2 723460.94 g Shobha Hall CNA [facility] 10/15/2024 15:14:17 Date Recorded Body height Body mass index (BMI) Body weight Body temperature Heart rate Oxygen saturation Oxygen saturation in Arterial blood by Pulse oximetry Systolic blood pressure Diastolic blood pressure Provider Name and Address Organization Details Last Updated DateTime 162.56 cm 44.4 kg/m2 216694. 35 g 98.6 [degF] 88 /min 98 % 98 % 132 mm[Hg] 92 mm[Hg] Denzel Mejia RN [facility] 5 15:39:04 Date Recorded Body height Body mass index (BMI) Body weight Body temperature Heart rate Respiratory rate Oxygen saturation Oxygen saturation in Arterial blood by Pulse oximetry Systolic blood pressure Diastolic blood pressure Provider Name and Address Organization Details Last Updated DateTime 5 162.56 cm 45.5 kg/m2 890913. 98 g 97.6 [degF] 103 /min 24 /min 98 % 98 % 128 mm[Hg] 82 mm[Hg] Kate Wellington RN [facility] [employer] [facility] 11:31:13 Date Recorded Body height Provider Name an d Address Organization Details Last Updated DateTime 02/04/2025 162.56 cm Cherelle Torres AR [employer] [facility] 02/04/2025 14:42:59 Date Recorded Body height Body mass index (BMI) Body weight Body temperature Oxygen saturation Oxygen saturation in Arterial blood by Pulse oximetry Heart rate Systolic blood pressure Diastolic blood pressure Provider Name and Address Organization Details Last Updated DateTime 5 162.56 cm 46.5 kg/m2 165334. 53 g 98.6 [degF] 97 % 97 % 103 /min 112 mm[Hg] 82 mm[Hg] MILKA Rodríguez [place] [facility] 13:58:23 Social History Question Answer Notes LastModified by Organizat ion Details LastModified Time Tobacco Smoking Status Former Smoker 1ppd Not Available [facility] 12/12/2022 00:42:08 What Is Your Level Of Caffeine Consumption? Moderate Information not available 01/29/2025 In The 14 Days Before Symptom Onset, Have You Had Close Contact With A Laboratory-confir med COVID-19 While That Case Was Ill? No Information not available 01/29/2025 In The 14 Days Before Symptom Onset, Have You Had Close Contact With A Person Who Is Under Investigation For COVID-19 While That Person Was Ill? No Information not available 01/29/2025 What Type Of Diet Are You Following? REGULAR Information not available 01/29/2025 Have There Been Any Changes To Your Family Or Social Situation? No Information no t available 01/29/2025 Do You Use Insect Repellent Routinely? No Information not available 01/29/2025 Where Do You Live? SingleLevelHouse Information not available 01/29/2025 How Many Children Do You Have? 3 Information not available 01/29/2025 Do You Have Any Pets? Yes Information not available 01/29/2025 What Is Your Relationship Status? Single Information not available 01/29/2025 Do You Use Your Seat Belt Or Car Seat Routinely? Yes Information not available 01/29/2025 Do You Have Smoke And Carbon Monoxide Detectors In Your Home? Yes Information not available 01/29/2025 Are You Passively Exposed To Smoke? Yes Information no t available 01/29/2025 Are There Any Smokers In Your House? Yes Information not available 01/29/2025 Do You Participate In Social Media? No Information not available 01/29/2025 Do You Use Sunscreen Routinely? No Information not available 01/29/2025 How Many Years Have You Smoked Tobacco? 11 [id number] Information not available 12/12/2022 Have You Recently Traveled Abroad? No Information not available 01/29/2025 How Many Years Have You Used E-cigarettes Or Vape? 3 Information not available 01/29/2025 Sex: Unknown Functional Status Question Answer Note LastModified by Organizat ion Details LastModified Time Do you use any illicit or recreational drugs? No Information not available 01/29/2025 Do you or have you ever used any other forms of tobacco or nicotine? Yes Information not available 08/25/2024 What is your level of alcohol consumption? None [email or web address] Information not available 09/01/2024 Are you currently employed? 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 Information not available 01/29/2025 Do you or have you ever used e-cigarettes or vape? Current user of electronic cigarettes Information not available 08/25/2024 What is your exercise level? None Information not available 01/29/2025 Mental Status Question Answer Note LastModified by Organization D etails LastModified Time Do you feel stressed (tense, restless, nervous, or anxious, or unable to sleep at night)? [id number] Information not available 01/29/2025 Family History Relationship Description Onset Age of this Age Resolved Age Notes LastModified by Organization Details LastModified Time Mother Diabetes mellitus [id number] Not available 12/12/2022 00:43:17 Mother Essential hypertension [email or web address] Not available 13:51:04 Mother Family history of stroke [email or web address] Not available 2024 13:51:04 Father Heart disease [id number] Not available 12/12/2022 00:43:17 Maternal Grandmother Malignant neoplasm of lung [email or web address] Not available 2024 13:51:04 Father Essential hypertension [email or web address] Not available 13:51:04 Medical History Condition Response BLINDNESS N RHEUMATIC FEVER N KIDNEY STONES N BLADDER PROBLEMS N MRSA N OTHER # 1 N POLIO N LUNG DISEASE/DISORDER N HISTORY OF DRUG ABUSE N RADIATION / CHEMOTHERAPY N COPD N Other # 2 N BLOOD DISEASES N SURGERY N EAR OR HEARING PROBLEMS N MUMPS N SHINGLES N FEMALE PROBLEMS / INFECTIONS N BOWEL PROBLEMS N DEPRESSION (INCLUDING POST ) N STROKE/TIA N THYROID DISEASE N ULCERS N BENIGN PROSTATIC HYPERPLASIA N MEASLES N CERVICALGIA N TB SKIN TEST N HYPOTENSION N MYOCARDIAL INFARCTION N PARAPELGIA N OBESITY Y GERD/NAUSEA N ANEURYSM N URINARY/BLADDER/KIDNEY PROBLEMS N CORONARY ARTERY DISEASE (CAD) N MENIERE'S DISEASE N ADDICTION CONCERNS N ENDOMETRIOSIS N USE OF BLOOD THINNERS N SKIN PROBLEMS N EMPHYSEMA N GASTROINTESTINAL DISORDER N MUSCLE,JOINT OR BONE PROBLEMS N GASTROINTESTINAL BLEEDING N BLOOD CLOTS N ASTHMA Y CATARACTS N ERECTILE DYSFUNCTION N GI PROBLEMS N CHF N Low Testosterone N NEUROPATHY N INFERTILITY N AIDS/HIV N FRACTURES N CHEMOTHERAPY / RADIATION N VISION/EYE PROBLEMS N LIVER DISEASE N MALE HYPOGONADISM N HYPERTENSION N TOURETTE'S N ANXIETY DISORDER N BLOOD TRANSFUSION N ANEMIA/BLOOD DISORDER Y CHRONIC EAR INFECTIONS N BRONCHITIS Y TUBERCULOSIS N GLAUCOMA N FOOT PROBLEM N DIVERTICULITIS N SLEEP APNEA N CHICKENPOX N ALLERGIES/HAYFEVER N INFECTIOUS DISEASE N PROSTATE N HEART ARRHYTHMIA N INSOMNIA N HIGH CHOLESTEROL / HYPERLIPIDEMIA N EYE PROBLEMS N HYPERTHYROIDISM N EATING DISORDER N EDEMA N CHRONIC PAIN SYNDROME N CONSTIPATION N CAROTID BLOCKAGE N BACK / NECK PROBLEMS N HAVE YOU BEEN HOSPITALIZED OR SEEN IN [facility] IN THE PAST YEAR ? N ATHEROSCLEROSIS N BREAST PROBLEMS N DIALYSIS N ECZEMA N FIBROMYALGIA N OSTEOPOROSIS N ARTHRITIS N NO SIGNIFICANT PAST MEDICAL HISTORY N APPENDICITIS N DIABETES, TYPE N BAD TEETH N HEARTBURN / REFLUX Y ADD/ADHD N AUTISM SPECTRUM DISORDER (ASD) N HEPATITIS / LIVER DISEASE N PULMONARY DISEASE N GOUT N SLEEP DISORDER N ALZHEIMER'S DISEASE N PAIN N DEMENTIA N HERPES N SEIZURES/EPILEPSY N HEADACHES/MIGRAINES Y VASCULAR DISEASE N PACEMAKER N DIZZINESS N HEART DISEASE/HEART PROBLEMS N KIDNEY DISEASE N SCARLET FEVER N MULTIPLE SCLEROSIS N DEVELOPMENTAL OR BEHAVIORAL DISORDERS N MENTAL DISORDER/ILLNESS N CANCER: SPECIFY Y CARDIAC ARRHYTHMIA N PNEUMONIA Y ATRIAL FIBRILLATION N Gall Stones N PULMONARY EMBOLISM N AUTOIMMUNE DISEASE N Gynecological History Statement/Question Response Abnormal Pap Y Flow Moderate Date of LMP 01/13/2025 Frequency of Cycle (Q days) 21 Duration of Flow (days) 5 Date of Last Pap Smear 09/20/2016 Current Control Method Tubal Ligat ion Age at Menarche 11 Obstetrics History GPAL:G 4 P 3 1 0 3 Type Value Full Term 3 Premature 1 Living 3 Total 4 Immunizations Vaccine Type Date Status Note Provider Nam e and Address Organization Details Recorded Time Influenza, split virus, quadrivalent, PF 08/22/2023 completed Terri Muir MD [address] [facility], [address], [place], [address], [facility] 08/23/2023 06:34:19 Past Encounters Encounter ID Performer Location Encounter Start Date Encounter Closed Date Diagnosis/Indication Diagnosis SNOMED-CT Code Diagnosis ICD10 Code Diagnosis Note [id number] S_[facility] ic_[facility] _ATHENA_M IGRATION_ DEFAULT_1 _1 , 12/12/2020 00:00:00 12/12/2020 11:33:46 [id number] S_Histor ic_[facility] _ATHENA_M IGRATION_ DEFAULT_1 _1 , 12/22/2020 00:00:00 12/22/2020 11:00:38 [id number] Terri Muir MD [facility] [place] [address] [place] [address] 09/27/2021 00:00:00 09/27/2021 20:11:52 [id number] Terri Muir MD [facility] [place] [address] [place] [address] 01/11/2022 00:00:00 01/11/2022 20:00:41 [id number] Terri Muir MD [facility] [place] [address] [place] [address] 01/30/2022 00:00:00 01/30/2022 11:47:07 [id number] Terri Muir MD [facility] [place] [address] [place] [address] 03/29/2022 00:00:00 03/29/2022 14:08:12 [id number] Ryne Franklin MD [facility] [place] [address] [place] [address] 04/30/2023 14:48:02 04/30/2023 16:07:25 Low back pain 464356196 M54.50 Bilateral sacroiliac joint pain 5169412437 9406938 M53.3 [id number] Ryne Franklin MD [facility] [place] [address] [place] [address] 05/28/2023 13:47:05 05/28/2023 15:33:58 Low back pain 467293534 M54.50 Bilateral sacroiliac joint pain 0338825890 2971824 M53.3 [id number] Ryne Franklin MD [facility] [place] [address] [place] [address] 06/25/2023 14:57:12 06/25/2023 15:13:33 Bilateral sacroiliac joint pain 6615744124 [id number] M53.3 [id number] Frankie Puga MD [facility] [place] [address] [place] [address] 07/25/2023 14:22:28 07/25/2023 15:09:25 Bilateral sacroiliac joint pain 2116124438 7066248 M53.3 Low back pain 558627837 M54.50 [id number] Terri Muir MD [facility] [address] [place] [address] 08/06/2023 15:58:33 08/06/2023 16:37:36 Removal of suture 19579678 Z48.02 Sutures removed. Asthma 962101577 J45.90 9 Doing better with inhalers. Continue the same. [id number] Terri Muir MD [facility] [address] [place] [address] 08/07/2023 16:08:24 08/07/2023 16:40:52 Acute right otitis media 654742656 H66.91 Pharyngitis 086206432 J0 2.9 Gargles with warm salt water and do throat lozenges. Aphthous u lcer of mouth 619190930 K12.0 Use orajel [id number] Frankie Puga MD [facility] [place] [address] [place] [address] 08/13/2023 14:56:53 08/13/2023 16:22:42 Bilateral sacroiliac joint pain 4515436304 6294840 M53.3 Low back pain 336861662 M54.50 [id number] Terri Muir MD [address] [place] [address] 08/22/2023 14:06:47 08/22/2023 15:30:36 Adult health examination 195704184 Z00.00 Hyperlipidemia 27054875 E78.5 Hidradenit is suppurativa 22652428 L73.2 Heat and PRID Administra tion of influenza vaccine 69511904 Z23 Acid reflux 197155340 K2 1.9 [id number] Osmar Nixon MD [address] [place] [address] 08/25/2024 14:18:59 08/25/2024 14:53:39 Low back pain 161977191 M54.50 Bilateral sacroiliac joint pain 9175357682 1329769 M53.3 Adult heal th examination 024183200 Z00.00 Essential hypertension 91216913 I10 Hyperlipidemia 81987898 E78.5 Obese 042055338 E66.9 Pharyngitis 232734763 J0 2.9 [id number] Lit Mejia MD [facility] [place] [address] [place] [address] 09/01/2024 14:41:20 09/01/2024 15:25:05 Bilateral sacroiliac joint pain 0995280394 4297398 M53.3 Low back pain 093001774 M54.50 Degenerati on of lumbar intervertebral disc 36050251 M51.858 [id number] Osmar Nixon MD [address] [address] 10/02/2024 12:24:21 10/02/2024 13:13:19 Acute right otitis media 114953462 H66.91 Sinusitis 45233846 J32.9 Nausea 278388750 R11.0 Bilateral sacroiliac joint pain 6539204794 6034344 M53.3 Allergic rhinitis 554357 04 J30.9 Asthma 092460043 J45.90 9 Essential hypertension 10140332 I10 Obese 667419147 E66.9 [id number] Lit Mejia MD [facility] [address] [place] [address] 10/15/2024 15:12:14 10/15/2024 15:48:12 Bilateral sacroiliac joint pain 0074637805 3527564 M53.3 Degenerati on of lumbar intervertebral disc 22153416 M51.369 Low back pain 516349281 M54.50 [id number] Osmar Nixon MD [facility] [address] 12/01/2024 15:27:52 12/01/2024 16:01:11 Asthma 317876140 J45.909 Bilateral sacroiliac joint pain 0374014859 5344066 M53.3 Migraine 21788192 G43.90 9 Serum tavo min B12 below reference range 011270103 R79.89 Vitamin D deficiency 347 33849 E55.9 [id number] Osmar Nixon MD [facility]_[address] [address] 01/29/2025 11:19:52 01/29/2025 13:57:20 Upper respiratory infection 66901553 J06.9 Cough, sore throat, concerns with possible hospitaliz ation due to asthma Vitamin D deficiency 347 56027 E55.9 Advised to continue supplement Bilateral sacroiliac joint pain 1924619439 4667694 M53.3 Essential hypertension 70367325 I10 Allergic rhinitis 644893 04 J30.9 Acid reflux 319780710 K2 1.9 [id number] Lit Mejia MD [facility]_[address] [address] 02/04/2025 14:40:57 02/04/2025 15:29:11 Bilateral sacroiliac joint pain 3709932555 8984951 M53.3 Degenerati on of lumbar intervertebral disc 77936401 M51.369 Low back pain 616074487 M54.50 [id number] Osmar Nixon MD [facility] [place] [address] [place] [address] 03/02/2025 13:50:24 03/02/2025 14:18:43 Asthma 300480029 J45.909 Allergic rhinitis 810875 04 J30.9 Degenerati on of lumbar intervertebral disc 94397713 M51.369 Essential hypertension 05175241 I10 Hidradenit is suppurativa 30726102 L73.2 Hyperlipidemia 04614692 E78.5 Low back pain 892854994 M54.50 Migraine 53860397 G43.90 9 Obese 856009638 E66.9 Serum tavo min B12 below reference range 655382709 R79.89 Vitamin D deficiency 347 28247 E55.9 Health Concerns Section Related Observation LastModified by Organization Detai ls LastModified Time None Recorded Concern Status LastModified by Organization Details LastModified Time None Recorded Advance Directives Directive None Recorded Payers Encounter Date Sequence Insurance Name Policy Number Policy Miranda Covered Member ID Miranda Member ID Guarantor Name 10/15/2024 1 [facility] (MEDICAID HMO) [id number] Yoselin Casas [id number] Yoselin Casas 12/01/2024 1 [employer] [facility] [facility] [place] ([place]ID [place]) [id number] Yoselin Casas [id number] Yoselin Casas 01/29/2025 1 [facility] (MEDICAID HMO) [id number] 0003 Yoselin Casas [id number] Yoselin Casas 02/04/2025 1 [facility] (MEDICAID HMO) [id number] Yoselin Casas [id number] Yoselin Casas 03/02/2025 1 [employer] [facility] [facility] [place] [id number] 0003 Yoselin Casas [id number] Yoselin Casas Notes Date Note Type Note Provider Name and Address Organization Details Recorded Time 10/15/2024 text/html Patient returns for recheck of her lumbar pain. She has some chronic low back pain I gave her shots of cortisone in the bilateral sacroiliac regions as well as started a course of oral prednisone followed by diclofenac 75 mg b.i.d. with food. The patient states today that the past 6 weeks since her treatment she was doing very well today her back is a little more achy than usual not due to any known trauma overuse or injury. She has some chronic numbness and tingling along the lateral right buttock and thigh but no weakness no bowel or bladder symptoms no pain in the groin. She continues to take diclofenac as well as Tylenol for her pain and does pretty well with conservative measures. KULWANT Tinsley [address], [place], [address], [facility] 10/15/2024 15:30:20 12/01/2024 text/html needs refills KULWANT Mendieta [address], [place], [address], [facility] 12/04/2024 16:36:52 01/29/2025 text/html Yoselin Casas i s a 39 year old female patient here today for a sick visit Notes right ear pain, throat pain started yesterday morning, yesterday evening fever. Now productive cough. Would like med refills today ZUHAIR Bartlett [address], [place], [address], [facility] 01/29/2025 12:51:22 02/04/2025 text/html Patient returns she has chronic low back pain she has had another flare. I saw her nearly 4 months ago she was doing pretty well at that time. She had had cortisone injections previous to that which gave her pretty good relief. Lately her pain has flared up once again she states it is about an 8 on a scale of 1-10. Pain is localized to the bilateral sacroiliac regions denies any new trauma no bowel or bladder symptoms weakness or numbness or tingling or radicular pain down the legs it stays localized to the bilateral sacroiliac regions. She has pretty good excursion of her lumbar spine but this causes pain when she eats 2 the point where she tries to bend over certain movements cause sudden stabbing pain in the lower back region. He previous x-rays really did not look too bad no significant degenerative changes noted no malalignment. An MRI scan a year and a half ago showed minor degenerative disc disease otherwise no central or neural foraminal stenosis. She comes in today for recurrence of lumbar pain as described. KULWANT Tinsley [address] [place] [address], [place], [address], [facility] 02/04/2025 15:06:17 03/02/2025 text/html needs refill spiriva respimat KULWANT Mendieta [address], [facility] [address], [place], [address], [facility] 03/09/2025 10:48:17 OBGyn Episode No OBEpisode recorded.
--- OUTSIDE RECORDS SUMMARY | 2025-03-11 02:47 | XMS_ITS | CONTINUITY OF CARE DOCUMENT ---
Author Name benjamin alexander Address Unknown Organization [facility] Address [address] [facility] [address] [place] [address] Phone [phone] Care Team Providers Care Border Guard Name Role Phone Brian DICKSON, Akash Unavailable CARLOS MARRUFO MD Unavailable [phone] INSURANCE PROVIDERS Payer name Policy type / Coverage type [place] MED[place] Medicaid [id number]
--- OUTSIDE RECORDS SUMMARY | 2025-03-11 02:47 | XMS_ITS | Clinical Summary ---
Author Organization [facility] Address [address] [facility] [place] [address] Care Team Providers Care Sheet Metal Engineer Name Role Phone Terri Muir MD Primary Care Provider [phone] Source Comments [facility],non-owned Affiliates and Associated Physician Practices is amultiple site organization consisting of ambulatory clinics and hospital sitesin [place], [place], [place] and [place]. This disclosure is being madepursuant to the Care Everywhere program and may not contain all information available regarding this patient. Last updated 18.[facility] Allergies Active Allergy Reactions Criticality Noted Date Comments Penicillins Other High 05/02/2022 Theophylline Rash Medium 05/02/2022 Medications * Be aware that medications may not be up to date on this document. Alwaysverify current medications with the patient. losartan (COZAAR) 25 MG tablet losartan 25 mg tablet TAKE 1 TABLET BY MOUTH EVERY DAY Active albuterol (PROVENTIL;VENT J LUIS) (2.5 MG/3ML) 0.083% nebulizer solution INHALE 1 VIAL THREE TIMES DAILY BY NEBULIZATION ROUTE NEEDED 2 Active albuterol HFA (Proventil; Ventolin; Proair) 108 (90 Base) MCG/ACT inhaler Inhale 2 (two) puffs by mouth every 4 hours as needed 7 g 5 2 Active budesonide-form oterol (Symbicort) 160-4.5 MCG/ACT inhaler Inhale 2 (two) puffs by mouth 2 times daily 10.2 g 11 3 Active Spiriva Respimat 2.5 MCG/ACT inhaler INHALE 2 PUFFS BY MOUTH EVERY DAY 12 g 11 4 Active Encounters Date Type Department Care Team Description 02/22/2025 Refill [facility] Pulmonology [address], [address] [place] [address] Alex Tapia MD MEDICATION REFILL 12/17/2024 Refill [facility] Pulmonology [address] [place] [address] Alex Tapia MD Refill Request from Last 3 Months Family History Medical History Relation Name Comments Diabetes - Type 2 Father Hypertension Father Asthma Mother COPD - Chronic Obstructive Pulmonary Disease Mother Diabetes - Type 2 Mother Relation Name Status Comments Father Alive Mother Alive Social History Tobacco Use Types Packs/Day Years Used Date Smoking Tobacco: Former Cigarettes 1 25.4 S tarted: 2000 Smokeless Tobacco: Former Quit: 2012 Tobacco Cessation:Counseling Given: Yes Alcohol Use Standard Drinks/Week Comments Never 0 (1 standard drink = 0.6 oz pur e alcohol) Comments Unknown Sex and Gender Information Value Date Recorded Sex Assigned at Not on file 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 Gender Identity Not on file Sexual Orientation Not on file Last Filed Vital Signs Vital Sign Reading Time Taken Comments Blood Pressure 124/70 05/17/2022 2:11 PM CDT Pulse 100 05/17/2022 2:11 PM CDT Temperature 36.8 C (98.2 F) 05/17/2022 2:11 PM CDT Respiratory Rate 16 05/02/2022 8:26 AM CDT Oxygen Saturation 93% 05/17/2022 2:11 PM CDT Inhaled Oxygen Concentration - - Weight 120.8 kg (266 lb 6 oz) 05/17/2022 2:11 PM CDT Height 162.6 cm (5' 4) 05/17/2022 2:11 PM CDT Body Mass Index 45.72 05/17/2022 2:11 PM CDT Plan of Treatment Health Maintenance Due Date Last Done Comments PAP SMEAR 1985 HIV SCREENING 2000 HEPATITIS C SCREENING 05/19/2003 DTAP/TDAP/TD VACCINES (1 - Tdap) 2004 HEPATITIS B VACCINE (1 of 3 - 19+ 3-dose series) 2004 COVID-19 VACCINE (1 2023-2 5 season) 2024 DEPRESSION SCREENING 10/14/2024 INFLUENZA VACCINE (Season Ended) 2025 ZOSTER VACCINE (1 of 2) 2035 HIB VACCINE Aged Out No longer eligi ble based on patient's age to complete this topic HPV VACCINE Aged Out No longer eligi ble based on patient's age to complete this topic MENINGOCOCCAL (Group B) VACC INE SHARED DECISION-MAKING Aged Out No longer eligibl e based on patient's age to complete this topic MENINGOCOCCAL GROUPS A/C/Y/W VACCINE Aged Out No longer eligible b ased on patient's age to complete this topic PNEUMOCOCCAL VACCINE Aged Out No long er eligible based on patient's age to complete this topic Insurance [facility] Care Teams Sheet Metal Engineer Relationship Specialty Start Date End Date Terri Muir MD [facility] [place] [address] PCP - General Family Medicine 04/30/22
--- NOTE | 2025-03-11 07:21 | WPDHPUPDATE1 ---
History and Physical Update Update Date/Time: 03/11/25 07:21 Original history and physical note issue be having a bilateral salpingectomy. She has had a prior tubal ligation therefore be having salpingectomy today. History and Physical has been reviewed, including an updated exam of the patient. There are NO changes in the patient's condition. Risks, benefits, and alternatives have been discussed and questions answered. Patient agrees to proceed with procedure.
[2025-03-11 07:30] VITALS: BP 127/87; PULSE 75; RESP 18; TEMP 36.6; O2SAT 100
[2025-03-11] MEDS: LACTATED RINGERS 1,000 ML 30 ML IV CONT (08:00)
[2025-03-11] MEDS: ACETAMINOPHEN 500 MG TABLET 1000 MG PO (08:12)
[2025-03-11 08:22] VITALS: BMI 46.3
--- NOTE | 2025-03-11 09:38 | SUR.PREOP ---
0938- Notified patient of delay to procedure start time. Patient verbalized understanding and denying needs at this time.
--- NOTE | 2025-03-11 09:58 | P.PNAN_ITS ---
Anes - Initial Pre Proc Eval Procedure: Operation Date: 03/11/25 09:30 Proposed Procedures p Hysteroscopy Dilation and Curettage with Elvia Endometrial Ablation - Horacio Alvarez MD Date/Time: 03/11/25 09:58 Surgeon: Horacio Alvarez MD Pre Op Diagnosis: abnormal uterine bleeding Patient Data Age: 39 Gender: F Height: 1.63 m Weight: 122.5 kg Last Vital Signs Temp 97.8 F 03/11/25 07:30 Pulse 75 03/11/25 07:30 Resp 18 03/11/25 07:30 BP 127/87 03/11/25 07:30 Pulse Ox 100 03/11/25 07:30 O2 Del Method Room Air 03/11/25 07:30 Allergies Allergy/AdvReac Type Severity Reaction Status Date / Time Penicillins Allergy Unknown Swelling Verified 03/11/25 08:20 of Lip/Tongue/Throat THEOPHYLLINE ANHYDROUS Allergy Mild Unknown Uncoded 03/02/25 14:23 Home Medications ?Medication ?Instructions ?Recorded ?Confirmed ?Type losartan 25 mg tablet 25 mg PO DAILY 12/20/21 03/11/25 History montelukast 10 mg tablet 10 mg PO DAILY 12/20/21 03/11/25 History albuterol 90 mcg/actuation aerosol 90 mcg inhalation Q6-8H PRN dyspnea 02/12/23 03/02/25 History inhaler budesonide-formoterol HFA 160 1 inh inhalation ONCE 02/12/23 03/11/25 History mcg-4.5 mcg/actuation aerosol inhaler (Symbicort) tiotropium bromide 2.5 2 puff inhalation DAILY 02/12/23 03/11/25 History mcg/actuation mist for inhalation (Spiriva Respimat) celecoxib 200 mg capsule (Celebrex) 200 mg PO DAILY 02/23/25 03/02/25 History albuterol sulfate 2.5 mg/3 mL 2.5 mg inhalation Q8H PRN 03/02/25 03/11/25 History (0.083 %) solution for nebulization shortness of breath or wheezing cholecalciferol (vitamin D3) 50 50 mcg PO DAILY 03/02/25 03/11/25 History mcg (2,000 unit) capsule cyanocobalamin (vitamin B-12) 1,000 mcg PO BID 03/02/25 03/11/25 History 1,000 mcg tablet (Vitamin B-12) Patient hx anesthesia problems: none Family hx anesthesia problems: none Results Review: All pre-operative results and documents have been reviewed as part of the pre- operative evaluation. [facility] Past Medical History Medical History Cyst (11/25/15) cyst removed from top of head Pneumonia GERD (gastroesophageal reflux disease) Migraines Bronchitis Asthma Normal colposcopy Surgical History Surgical History History of colposcopy History of tonsillectomy History of tubal ligation History of cryosurgery Family History Family History Mother Diabetes mellitus Hypertension Father Heart disease Grandparent Lung cancer maternal grandmother Social History Social History Years smoked: 12 Smoking status: Former smoker Tobacco type: cigarettes and e-cigarettes/vaping Smoking end date: 03/02/12 Additional smoking assessment comments: Currently vapes. 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 ) Neurological: alert and oriented Last oral intake: >/= 8 hours ASA classification: III Emergent: no Anesthetic plan: proceed Anesthesia type and monitoring: general LMA and standard monitoring Results Review: All pre-operative results and documents have been reviewed as part of the pre-operative evaluation. HTN, BMI 46, currently vapes daily, asthma stable of recent. Pt states that she can walk 1-2 fos, no cp or sob. Informed Consent: The patient's anesthetic plan and its attendant risks and benefits were discussed with the patient/family/POA. Questions were solicited and answers provided to the satisfaction of the patient/family/POA.
[2025-03-11] MEDS: ceFAZolin 3 GM/D5W 100 ML 100 ML IVPB (10:26)
--- NOTE | 2025-03-11 10:42 | S_PTH ---
PATIENT: Yoselin Casas LOC: [facility]#:[id number] AGE/SX: 39/F ROOM: RE03/11/[address]: Horacio Alvarez MD : 1985 BED: DIS: 03/11/2025 SPEC #: [id number] RECD: 03/11/25 13:06 STATUS: ISRA REShilpa #: [id number] AUDRA: 03/11/25 10:[address]: Horacio Alvarez DEPT: [facility] Surgical RECD BY: Sapphire Monroe ENTERED: 03/11/25 13:06 SP TYPE: Surgical OTHR DR: Chet Franklin, PA Tissues: A - Endometrial Curettings Procedures: Hematoxylin and Eosin Stain Gross and Microscopic Level 4
--- NOTE | 2025-03-11 10:51 | W.PM.PROC2 ---
Procedure Note - Detailed Date of Procedure 03/11/25 Pre-op Diagnosis 1. Menometrorrhagia 2. Dysmenorrhea Post-op Diagnosis Same Procedure Performed 1. Hysteroscopy with uterine curettings 2. Elvia endometrial ablation Surgeon Horaico Alvarez MD Anesthesia MAC Findings Hysteroscopic exam revealed fluffy endometrial tissue, no polyps or fibroids Description of Procedure Patient prepped draped usual manner for this procedure. Cervix was dilated to allow hysteroscope to placed. Hysteroscopic exam with findings as above. Curettings were obtained. Elvia instrument was placed cavity assessment performed and instrument activated. At the end cycle hysteroscopic exam revealed good destruction throughout. Patient sentl sent to recovery room stable condition. Estimated Blood Loss 10 Drains No Packing No Pathology Yes Complications No immediate complications Condition Stable Disposition PACU [facility] Billing Surgery - Charge Forward: Surgery Billing
[2025-03-11 10:52] VITALS: BP 99/50; PULSE 70; RESP 14; O2SAT 94
[2025-03-11 11:25] VITALS: BP 114/53; PULSE 77; RESP 16
[2025-03-11] MEDS: oxyCODONE HCL (*CRX) 5 MG TAB IR PO (11:30)
[2025-03-11 11:55] VITALS: BP 134/88; PULSE 70; RESP 16
== END 2025-03-11 12:10 | disposition home or self-care (01) ==
PROVIDERS: PCP Physician Assistant; Visit Provider Obstetrics & Gynecology
PROC: 0U5B8ZZ Destruction of Endometrium, Via Natural or Artificial Opening Endoscopic (ICD-10-PCS; CPT 58563; principal; 2025-03-11 09:30)
DX: N84.0 Polyp of corpus uteri (principal); I10 Essential (primary) hypertension; K21.9 Gastro-esophageal reflux disease without esophagitis; J45.909 Unspecified asthma, uncomplicated; F17.290 Nicotine dependence, other tobacco product, uncomplicated; E66.01 Morbid (severe) obesity due to excess calories; Z68.42 Body mass index [BMI] 45.0-49.9, adult; Z79.51 Long term (current) use of inhaled steroids; Z79.1 Long term (current) use of non-steroidal anti-inflammatories (NSAID); Z98.890 Other specified postprocedural states; Z98.51 Tubal ligation status; Z80.1 Family history of malignant neoplasm of trachea, bronchus and lung; Z82.49 Family history of ischemic heart disease and other diseases of the circulatory system
CPT/HCPCS: 58563; 88305; A9270; J0690; J1100; J2003; J2250; J2405; J2704; J3010; J7120

== ENCOUNTER 2025-03-26 11:51 | Outpatient (CLI) | payer OTHER, SELFPAY ==
--- OUTSIDE RECORDS SUMMARY | 2025-03-26 11:57 | XMS_ITS | Data Portability ---
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 She voiced understanding agrees with the [...] to schedule. ..Thank you 2024 025 [email or web address] [facility], Occupational & [facility] Medicine [facility] Re[facility], [address] [place], [address], 02/18/2025 08:17:30 Procedures injection /aspirati on joint/bur sa (PROC) 2024 025 [email or web address] In-Office Order, Internal Use Only DO Not Attach Compendium DO Not Attach Compendium, Do Not Delete/merge, [id number] 02/04/2025 14:58:21 Surgeries None recorded. Imaging None recorded. Medication Orders Spiriva Respimat 1.25 mcg/actua tion solution for inhalatio n 2024 025 [facility] #07384, [address] [facility], [place], [place], [id number], 03/02/2025 14:32:08 bupivacai ne HCl 0.5 % (5 mg/mL) injection solution 2024 025 [email or web address] [facility] #39123, [address], [place], [place], [id number], 02/04/2025 16:07:58 Kenalog 10 mg/mL suspensio n for injection 2024 025 [facility]59257 [address] [facility] #23241, [address], [place], [place], [id number], 03/18/2025 09:04:17 celecoxib 200 mg capsule 2024 025 [email or web address] [facility] #51914, [address], [id number], 02/04/2025 16:07:58 diclofena c sodium 75 mg tablet,de layed release 2024 025 [email or web address] [facility] #88171, [address], [id number], 03/02/2025 13:55:[address] 10 mg tablet 2024 025 [facility] #05460, [address], [id number], 01/29/2025 11:42:35 omeprazol e 40 mg capsule,d elayed release 2024 025 [facility] #34872, [address], [id number], 01/29/2025 11:42:34 cholecalc iferol (vitamin D3) 50 mcg (2,000 unit) capsule 2024 025 [facility] #02294, [address], [id number], 01/29/2025 11:42:33 losartan 50 mg tablet 2024 025 [facility] #93917, [address] , [place], [place], [id number], 01/29/2025 11:42:36 Medrol (Allen) 4 mg tablets in a dose pack [address] [facility] #61026, [address] , [place], [place], [id number], 03/02/2025 13:56:14 azithromy nehal 250 mg tablet [address]26069, [address] [facility] [place], [place], [id number], 03/02/2025 13:55:28 diclofena c sodium 75 mg tablet,de layed release [address]40922, [address] [place], [id number], 03/02/2025 13:55:23 albuterol sulfate HFA 90 mcg/actua tion aerosol inhaler [address]34933, [address] [place], [id number], 12/01/2024 15:50:09 albuterol sulfate 2.5 mg/3 mL (0.083 %) solution for nebulizat ion [address]33237, [address] [facility] [place], [place], [id number], 12/01/2024 15:50:09 Depo-Medr ol 80 mg/mL suspensio n for injection 2024 025 Not available 01/29/2025 11:27:48 prednison e 20 mg tablet [address] [facility] #74871, [address] , [place], [place], [id number], 01/29/2025 11:28:01 cholecalc iferol (vitamin D3) 50 mcg (2,000 unit) capsule 2024 025 [facility] #49537, [address] , [place], [place], [id number], 12/01/2024 15:53:50 sumatript an 100 mg tablet [address] [facility] #59861, [address] [facility], [place], [id number], 01/29/2025 11:28:35 cyanocoba dimas (vit B-12) 1,000 mcg sublingua l tablet 2024 025 [facility] #65810, [address] , [place], [place], [id number], 12/01/2024 15:53:51 Patient TargetsNo targets recorded. Patient [...] resul t No observ ation record ed. [facility] [address] [facility], [place], [address], 03/02/2025 15:50:40 Result Notes None recorded. Problems Name Problem SNOMED Code Status Onset Date Resolution Date Notes Provider Name and Address Organization Details Recorded Time Allergic rhinitis 51269941 Active 2022 Not Available [facility] 3 19:29:27 Essential hypertens ion 11345921 Active 2022 Not Available [facility] 3 19:29:27 Low back pain 833039892 Active 2022 Not Available [facility] 3 19:29:27 Bilateral sacroilia c joint pain 11235302778 533375 Active 2022 Not Available [facility] 3 19:29:27 Acute right otitis media 997778018 Active 2022 Not Available [facility] 3 19:29:27 Pharyngit is 340564227 Active 2022 Not Available [facility] 3 19:29:27 Aphthous ulcer of mouth 467776028 Active 2022 Not Available [facility] 3 19:29:27 Hyperlipi demia 71124869 Active 2022 Terri Muir MD [address], [address], [place], [address] , [employer] 3 14:27:44 Hidradeni tis suppurati va 76940683 Active 2022 Terri Muir MD [address], [address], [place], [address] , [facility] 3 14:30:45 Acid reflux 804240077 Active 2022 Terri Muir MD [address], [address], [place], [address] , [facility] 3 06:34:31 Adult health examinati on Active 2023 KULWANT Mendieta [address], [address], [place], [address] , [facility] 4 14:46:37 Obese 945353084 Active 2023 KULWANT Mendieta [address], [address], [place], [address] , [place] [facility] 4 14:47:26 Degenerat ion of lumbar intervert ebral disc 37052192 Active 2023 KULWANT Tinsley [address], [address], [place], [address] , [place] [facility] 4 15:31:50 Sinusitis 10802953 Active 2023 KULWANT Mendieta [address], [address], [place], [address] , [place] [facility] [employer] 4 12:36:50 Nausea 886977136 Active 2023 KULWANT Mendieta [address], [address], [place], [address] , [place] [facility] [employer] 4 12:37:06 Migraine 00288285 Active 2024 KULWANT Mendieta [address], [address], [place], [address] , [place] [facility] [employer] 5 15:49:21 Serum vitamin B12 below reference range 451152894 Active 2024 KULWANT Mendieta [address], [address], [place], [address] , [place] [facility] [employer] 5 15:51:48 Vitamin D deficienc y 25304931 Active 2024 KULWANT Mendieta [address], [address], [place], [address] , [place] [facility] 5 15:52:26 Upper respirato ry infection 80870590 Active 2024 ZUHAIR Bartlett [address], [address], [place], [address] , [place] [facility] 5 11:39:08 Disorder of shoulder 703149068 Active 2020 Not Available [facility] 3 19:29:27 Backache 606856882 Active Not Available [facility] 3 19:29:27 Asthma 809266803 Active 2020 Not Available [facility] 3 19:29:27 Leukorrhe a 406854502 Completed Not Available [facility] 3 00:51:50 Hypertens navjot disorder 48622983 Active 2020 Not Available [facility] 3 19:29:27 Sprain of ankle 20386379 Completed Not Available [facility] 3 00:51:50 Pain of breast 20027063 Completed Not Available [facility] 3 00:51:51 Notes:Some problems listed i n Documents: #[id number], #[id number] could not be added to this patient's chart. Please review these documents and add these problems to the patient's chart manually as needed. Problem Notes None recorded. Procedures Surgical History Date Name Laterality Status Provider Name and Address Organization Details Recorded Time 08/06/20 23 Suture/Staple removal completed Terri Muir MD [address] [facility], [place], [address], [employer] 08/07/2023 06:57:21 05/28/20 23 Ortho - Cortisone Injection completed Ryne Franklin MD [address], [place], [address], [email or web address] [facility] 05/28/2023 15:04:32 04/30/20 23 Ortho - Cortisone Injection completed Ryne Franklin MD [address], [place], [address], [employer] [facility] [employer] [facility] 04/30/2023 15:51:21 09/20/20 16 Date of Last Pap Smear completed Not Available [facility] 12/12/2022 00:43:06 11/25/19 16 other completed Not Available [facility] 3 00:43:11 PICKER BOX OPERATOR Procedure completed Not Available [facility] 12/12/2022 00:43:11 PICKER BOX OPERATOR Procedure completed Not Available [facility] 12/12/2022 00:43:11 Tubal Ligation completed Not Available [facility] 12/12/2022 00:43:11 Tonsillectomy completed Not Available [facility] 12/12/2022 00:43:11 Imaging Results None recorded. Procedure Notes None recorded. Medical Equipment None Reported. Allergies Allergen ID Allergen Name Allergen Category Reaction Reaction Severity Criticality Documentation Date Start Date Code Code System Note Provider Name and Address Organization Details Recorded Time 1407 theophyll ine medicatio n rash Not available Not available 12/12/2022 29635 RxNorm as child Not Available [facility] 3 01:03:16 1408 Product containin g penicilli n (product) medicatio n hives severe Not available 12/12/2022 62246 8001 SNOMED Not Available [facility] 3 01:03:16 Medications Name Sig Start Date [...] Available omeprazole 40 mg capsule,del ayed release TAKE 1 CAPSULE BY MOUTH EVERY DAY DIRECTED active Not Available Not Available No t Available Depo-Medrol 80 mg/mL suspension for injection Take [...] 40 mg by injection route. 2024 active [facility]: 0003- 0494- 20 Not Available Not [...] Available Not Available ibuprofen 600 mg tablet TAKE 1 TABLET BY MOUTH THREE TIMES DAILY active Not Available Not Available No t Available levofloxaci n 500 mg tablet 02/03 [...] (vitamin D3) 50 mcg (2,000 unit) capsule TAKE 1 CAPSULE BY MOUTH EVERY DAY AFTER A MEAL active Not Available Not Available No t Available Vinate One 60 mg iron-1 mg tablet TK 1 C PO QD 12/01 completed Not Available Not Available Not Available Aeroch[employer] Plus Flow-Vu 09/27 completed Not Available Not Available Not Available ropivacaine (PF) 5 mg/mL (0.5 %) injection solution Take 40 mg by injection route. 09/01 completed [facility] 22500 -064- 01 Not Available Not Available Not [...] Updated DateTime 10/15/2024 162.56 cm 46.3 kg/m2 378270.94 g Shobha Hall C[facility] [employer] [facility] 10/15/2024 15:14:17 Date Recorded Body height Body mass index (BMI) Body weight Body temperature Heart rate Oxygen saturation Oxygen saturation in Arterial blood by Pulse oximetry Systolic blood pressure Diastolic blood pressure Provider Name and Address Organization Details Last Updated DateTime 5 162.56 cm 44.4 kg/m2 320169. 35 g 98.6 [degF] 88 /min 98 % 98 % 132 mm[Hg] 92 mm[Hg] Denzel Mejia RN [facility] [employer] [facility] 5 15:39:04 Date Recorded Body height Body mass index (BMI) Body weight Body temperature Heart rate Respiratory rate Oxygen saturation Oxygen saturation in Arterial blood by Pulse oximetry Systolic blood pressure Diastolic blood pressure Provider Name and Address Organization Details Last Updated DateTime 5 162.56 cm 45.5 kg/m2 457887. 98 g 97.6 [degF] 103 /min 24 /min 98 % 98 % 128 mm[Hg] 82 mm[Hg] Kate Wellington RN [facility] [employer] [facility] 5 11:31:13 Date Recorded Body height Provider Name an d Address Organization Details Last Updated DateTime 02/04/2025 162.56 cm Cherelle Torres [facility] [employer] [facility] 02/04/2025 14:42:59 Date Recorded Body height Body mass index (BMI) Body weight Body temperature Oxygen saturation Oxygen saturation in Arterial blood by Pulse oximetry Heart rate Systolic blood pressure Diastolic blood pressure Provider Name and Address Organization Details Last Updated DateTime 5 162.56 cm 46.5 kg/m2 942449. 53 g 98.6 [degF] 97 % 97 % 103 /min 112 mm[Hg] 82 mm[Hg] MILKA Rodríguez [facility] [employer] [facility] 13:58:23 Social History Question Answer Notes LastModified by Organizat ion Details LastModified Time Tobacco Smoking Status Former Smoker 1ppd Not Available [facility] 12/12/2022 00:42:08 What Is Your Level [...] Many Years Have You Smoked Tobacco? 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 Current user of electronic cigarettes Information not available 08/25/2024 What is your exercise level? None Information not available 01/29/2025 Mental Status Question Answer Note LastModified by Organization D etails LastModified Time Do you feel stressed (tense, restless, nervous, or anxious, or unable to sleep at night)? [id number] Information not available 01/29/2025 Family History Relationship Description Onset Age of this Age Resolved Age Notes LastModified by Organization Details LastModified Time Mother Diabetes mellitus [id number] Not available 12/12/2022 00:43:17 Mother Essential hypertension Not available 13:51:04 Mother Family history of stroke [email or web address] Not available 2024 13:51:04 Father Heart disease [id number] Not available 12/12/2022 00:43:17 Maternal Grandmother Malignant neoplasm of lung [email or web address] Not available 2024 13:51:04 Father Essential hypertension [email or web address] Not available 13:51:04 Medical History Condition Response BLINDNESS N RHEUMATIC FEVER N KIDNEY STONES N BLADDER PROBLEMS N MRSA N OTHER # 1 N POLIO N LUNG DISEASE/DISORDER N HISTORY OF DRUG ABUSE N COPD N RADIATION / CHEMOTHERAPY N Other # 2 N BLOOD DISEASES N SURGERY N EAR OR HEARING PROBLEMS N MUMPS N SHINGLES N BOWEL PROBLEMS N FEMALE PROBLEMS / INFECTIONS N DEPRESSION (INCLUDING POST ) N STROKE/TIA N THYROID DISEASE N ULCERS N BENIGN PROSTATIC HYPERPLASIA N MEASLES N CERVICALGIA N TB SKIN TEST N HYPOTENSION N MYOCARDIAL INFARCTION N OBESITY Y PARAPELGIA N GERD/NAUSEA N ANEURYSM N URINARY/BLADDER/KIDNEY PROBLEMS N [...] GLAUCOMA N FOOT PROBLEM N DIVERTICULITIS N CHICKENPOX N SLEEP APNEA N ALLERGIES/HAYFEVER N INFECTIOUS DISEASE N HEART ARRHYTHMIA N PROSTATE N INSOMNIA N HIGH CHOLESTEROL / HYPERLIPIDEMIA N HYPERTHYROIDISM N EYE PROBLEMS N EATING DISORDER N EDEMA N CHRONIC PAIN SYNDROME N CONSTIPATION N CAROTID BLOCKAGE N BACK / NECK PROBLEMS N HAVE YOU BEEN HOSPITALIZED OR SEEN IN [facility] IN THE PAST YEAR ? N ATHEROSCLEROSIS [...] DISORDER N ALZHEIMER'S DISEASE N PAIN N HERPES N DEMENTIA N HEADACHES/MIGRAINES Y SEIZURES/EPILEPSY N VASCULAR DISEASE N PACEMAKER N DIZZINESS N HEART DISEASE/HEART PROBLEMS N KIDNEY DISEASE N DEVELOPMENTAL OR BEHAVIORAL DISORDERS N MULTIPLE SCLEROSIS N SCARLET FEVER N MENTAL DISORDER/ILLNESS N CARDIAC ARRHYTHMIA N CANCER: SPECIFY Y PNEUMONIA Y ATRIAL FIBRILLATION N Gall Stones [...] Immunizations Vaccine Type Date Status Note Provider [facility] e and Address Organization Details Recorded Time Influenza, split virus, quadrivalent, PF 08/22/2023 completed Terri Muir MD [address], [place], [address], [place] [facility] 08/23/2023 06:34:19 Past Encounters Encounter ID Performer Location Encounter Start Date Encounter Closed Date Diagnosis/Indication Diagnosis SNOMED-CT Code Diagnosis ICD10 Code Diagnosis Note [id number] S_[facility] _ATHENA_M IGRATION_ DEFAULT_1 _1 , 12/12/2020 00:00:00 12/12/2020 11:33:46 [id number] S_[facility] _ATHENA_M IGRATION_ DEFAULT_1 _1 , 12/22/2020 00:00:00 12/22/2020 11:00:38 [id number] Terri Muir MD [facility] Christopher fleming [address] [place] [address] [place] [address] 09/27/2021 00:00:00 09/27/2021 20:11:52 [id number] Terri Muir MD [facility] Lambert llraúl [address] [place] [address] [place] [address] 01/11/2022 00:00:00 01/11/2022 20:00:41 [id number] Terri Muir MD [facility] Lambert llraúl [address] [place] [address] [place] [address] 01/30/2022 00:00:00 01/30/2022 11:47:07 [id number] Terri Muir MD [facility] Christopher fleming [address] [place] [address] [place] [address] 03/29/2022 00:00:00 03/29/2022 14:08:12 [id number] Ryne Franklin MD [facility] Ortho Sonya Madrig[address] [place] [address] 04/30/2023 14:48:02 04/30/2023 16:07:25 Low back pain 788300915 M54.50 Bilateral sacroiliac joint pain 5356205448 0443977 M53.3 [id number] Ryne Franklin MD [facility] Ortho [address] [place] [address] 05/28/2023 13:47:05 05/28/2023 15:33:58 Low back pain 225301550 M54.50 Bilateral sacroiliac joint pain 3907694295 2551955 M53.3 [id number] Ryne Franklin MD [facility] Ortho [address] [place] [address] 06/25/2023 14:57:12 06/25/2023 15:13:33 Bilateral sacroiliac joint pain 5952410583 9570582 M53.3 [id number] Frankie Puga MD [facility] Ortho [address] [place] [address] 07/25/2023 14:22:28 07/25/2023 15:09:25 Bilateral sacroiliac joint pain 3936197796 8032827 M53.3 Low back pain 927287853 M54.50 [id number] Terri Muir MD [facility] [address] [place] [address] 08/06/2023 15:58:33 08/06/2023 16:37:36 Removal of suture 48084356 Z48.02 Sutures removed. Asthma 707685361 J45.90 9 Doing better with inhalers. Continue the same. [id number] Terri Muir MD [facility] lle [address] [place] [address] [place] [address] 08/07/2023 16:08:24 08/07/2023 16:40:52 Acute right otitis media 448321671 H66.91 Pharyngitis 369715288 J0 2.9 Gargles with warm salt water and do throat lozenges. Aphthous u lcer of mouth 973613147 K12.0 Use orajel [id number] Frankie Puga MD [facility] Ortho [address] [place] [address] 08/13/2023 14:56:53 08/13/2023 16:22:42 Bilateral sacroiliac joint pain 2475920234 7094507 M53.3 Low back pain 567515816 M54.50 [id number] Terri Muir MD [facility] [address] [facility] [place] [address] 08/22/2023 14:06:47 08/22/2023 15:30:36 Adult health examination 846838372 Z00.00 Hyperlipidemia 85115554 E78.5 Hidradenit is suppurativa 16127975 L73.2 Heat and PRID Administra tion of influenza vaccine 69680630 Z23 Acid reflux 358981548 K2 1.9 [id number] Osmar Nixon MD [facility] [address] [facility] [place] [address] 08/25/2024 14:18:59 08/25/2024 14:53:39 Low back pain 583702174 M54.50 Bilateral sacroiliac joint pain 3492499140 6036985 M53.3 Adult heal th examination 715714497 Z00.00 Essential hypertension 60490907 I10 Hyperlipidemia 29098903 E78.5 Obese 504527147 E66.9 Pharyngitis 224209435 J0 2.9 [id number] Lit Mejia MD [facility] Ortho [address] [place] [address] 09/01/2024 14:41:20 09/01/2024 15:25:05 Bilateral sacroiliac joint pain 0037824931 3381622 M53.3 Low back pain 117022986 M54.50 Degenerati on of lumbar intervertebral disc 77931429 M51.356 [id number] Osmar Nixon MD [address] [address] 10/02/2024 12:24:21 10/02/2024 13:13:19 Acute right otitis media 115486983 H66.91 Sinusitis 60293073 J32.9 Nausea 790892003 R11.0 Bilateral sacroiliac joint pain 3203165582 5829805 M53.3 Allergic rhinitis 622886 04 J30.9 Asthma 072509060 J45.90 9 Essential hypertension 00767649 I10 Obese 294933284 E66.9 [id number] Lit Mejia MD [facility] [address] [place] [address] 10/15/2024 15:12:14 10/15/2024 15:48:12 Bilateral sacroiliac joint pain 9938359793 2213106 M53.3 Degenerati on of lumbar intervertebral disc 68633591 M51.369 Low back pain 754669993 M54.50 [id number] Osmar Nixon MD [facility] [address] [place] [address] 12/01/2024 15:27:52 12/01/2024 16:01:11 Asthma 806649679 J45.909 Bilateral sacroiliac joint pain 9271927553 1706200 M53.3 Migraine 14286067 G43.90 9 Serum tavo min B12 below reference range 866235841 R79.89 Vitamin D deficiency 347 95842 E55.9 [id number] Osmar Nixon MD [facility] [address] [place] [address] 01/29/2025 11:19:52 01/29/2025 13:57:20 Upper respiratory infection 11500744 J06.9 Cough, sore throat, concerns with possible hospitaliz ation due to asthma Vitamin D deficiency 347 29833 E55.9 Advised to continue supplement Bilateral sacroiliac joint pain 9593378268 5416481 M53.3 Essential hypertension 15468540 I10 Allergic rhinitis 174611 04 J30.9 Acid reflux 188637587 K2 1.9 [id number] Lit Mejia MD [facility]_[address] [address] 02/04/2025 14:40:57 02/04/2025 15:29:11 Bilateral sacroiliac joint pain 3027093814 0852864 M53.3 Degenerati on of lumbar intervertebral disc 81541622 M51.369 Low back pain 913394989 M54.50 [id number] Osmar Nixon MD [facility] [address] [address] 03/02/2025 13:50:24 03/02/2025 14:18:43 Asthma 589541924 J45.909 Allergic rhinitis 264049 04 J30.9 Degenerati on of lumbar intervertebral disc 54463951 M51.369 Essential hypertension 16136585 I10 Hidradenit is suppurativa 81379292 L73.2 Hyperlipidemia 79090393 E78.5 Low back pain 624067714 M54.50 Migraine 28681616 G43.90 9 Obese 539472354 E66.9 Serum tavo min B12 below reference range 215827007 R79.89 Vitamin D deficiency 347 44642 E55.9 Health Concerns Section Related Observation LastModified by Organization Detai ls LastModified Time None Recorded Concern Status LastModified by Organization Details LastModified Time None Recorded Advance Directives Directive None Recorded Payers Insurance Date Sequence Insurance Name Policy Number Policy Miranda Covered Member ID Miranda Member ID Guarantor Name 03/09/2025 1 [facility] (MEDICAID HMO) [id number] Yoselin Casas [id number] Yoselin Casas Notes Date Note Type Note [...] pretty well with conservative measures. KULWANT Tinsley [address] [place] [address], [facility] [address], [place], [address], [facility] 10/15/2024 15:30:20 12/01/2024 text/html needs refills KULWANT Mendieta [address], [address], [place], [address], [facility] [place] [place] [employer] [facility] 12/04/2024 16:36:52 01/29/2025 text/html Yoselin Casas i s a 39 year old female patient here today for a sick visit Notes right ear pain, throat pain started yesterday morning, yesterday evening fever. Now productive cough. Would like med refills today ZUHAIR Bartlett [address], [address], [place], [address], [facility] [employer] [facility] [employer] 01/29/2025 12:51:22 02/04/2025 text/html Patient returns she [...] lumbar pain as described. KULWANT Tinsley [address], [address], [place], [address], [facility] [place] [employer] 02/04/2025 15:06:17 03/02/2025 text/html needs refill spiriva respimat KULWANT Mendieta [address], [address], [place], [address], [facility] 03/09/2025 10:48:17 OBGyn Episode No OBEpisode recorded.
--- OUTSIDE RECORDS SUMMARY | 2025-03-26 11:57 | XMS_ITS | Data Portability ---
[facility] Organization [facility] Address [address] [place] [address] Assessment No assessment recorded. Plan of Treatment Reminders Order Date Submit Date Provider Last Modified By Organization Details Last Modified Time Details Appointments None recorded. Lab None recorded. Referral None recorded. Procedures None recorded. Surgeries None recorded. Imaging None recorded. Medication Orders Bisi Allergy 180 mg tablet 2020 [facility], [address] [place] [address], [id number], 13:10:23 montelukas t 10 mg tablet 2020 [facility], [address] [place] [address], [id number], 13:10:21 losartan 25 mg tablet 2020 [facility], [address] [place] [address], [id number], 13:10:21 Qvar RediHaler 80 mcg/actuat ion HFA breath activated aerosol 2020 [facility], [address] [place] [address], [id number], 11:07:06 Ventolin HFA 90 mcg/actuat ion aerosol inhaler 2020 [facility], [address] [place] [address], [id number], 10/25/202 1 11:07:06 Zithromax Z-Allen 250 mg tablet 2020 021 [facility], [address] [place] [address], [id number], 1 11:07:07 albuterol sulfate 2.5 mg/3 mL (0.083 %) solution for nebulizati on 2020 [facility], [address] [place] [address], [id number], 1 11:07:05 Medrol (Allen) 4 mg tablets in a dose pack 2020 021 [facility], [address] [place] [address], [id number], 1 11:07:04 Medrol (Allen) 4 mg tablets in a dose pack 2020 021 [facility], [address] [place] [address], [id number], 1 14:08:31 Zithromax Z-Allen 250 mg tablet 2020 021 [facility], [address] [place] [address], [id number], 1 14:04:31 Qvar RediHaler 80 mcg/actuat ion HFA breath activated aerosol 2020 021 [facility], [address] [place] [address], [id number], 1 15:03:27 Ventolin HFA 90 mcg/actuat ion aerosol inhaler 2020 021 [facility], [address] [place] [address], [id number], 1 15:03:25 albuterol sulfate 2.5 mg/3 mL (0.083 %) solution for nebulizati on 2020 [facility], [address] [place] [address], [id number], 15:03:26 Zithromax Z-Allen 250 mg tablet 2020 [facility], [address] [place] [address], [id number], 12:37:02 Zithromax Z-Allen 250 mg tablet 2020 [facility], [address] [place] [address], [id number], 12:37:02 Medrol (Allen) 4 mg tablets in a dose pack 2020 [facility], [address] [place] [address], [id number], 14:16:11 Patient TargetsNo targets recorded. Patient Instructions Encounter Date Encounter Id Patient Instructions Last Modified By Organization Details Last Modified Time 05/08/2021 [id number] controlling your asthma: care instructions [facility] Not available 05/08/2021 15:02:41 learning about asthma [facility] Not available 05/08/2021 15:02:42 05/26/2021 [id number] chronic obstructive pulmonary disease (COPD): care instructions [facility] Not available 05/26/2021 14:05:22 learning about copd and how to prevent lung infections si Not available 05/26/2021 14:05:22 08/07/2021 [id number] bronchitis: care instructions [facility] Not available 08/07/2021 11:05:10 08/11/2021 [id number] seasonal allergies: care instructions [facility] Not available 08/11/2021 13:09:27 Reason for Referral None Reported. Problems Name Problem SNOMED Code Status Onset Date Resolution Date Notes Provider Name and Address Organization Details Recorded Time Acute bronchitis 01679292 Active Not Available [facility] 07:05:11 Hypothyroi dism 42186548 Active Not Available [facility] 3 07:05:12 Influenza 9461717 Active Not Available [facility] 3 07:05:12 Asthma 278003154 Active Not Available [facility] 3 07:05:11 Acute otitis media 3103921 Active Not Available [facility] 3 07:05:12 Obesity 187327897 Active Not Available [facility] 3 07:05:12 Anterior knee pain 660651074 Active Not Available [facility] 3 07:05:11 Migraine 93409098 Active Not Available [facility] 3 07:05:12 Lesion of scalp 633982156401 Active Not Available [facility] 3 07:05:12 Tinea corporis 25914012 Active Not Available [facility] 3 07:05:12 Problem Notes Documentation Provider Name and Address Organization Details Recorded Time Pulmonology Note : This document (1 of 1) was received from [email or web address] [employer] on 01/16/2024 through Direct Message along with the following message body content: Patient Name: NORIS CASAS. Patient : [id number]. Patient . Leopoldo adams, [facility] 02/17/2024 11:22:12 Procedures Surgical History Date Name Laterality Status Provider Name and Address Organization Details Recorded Time Tubal Ligation completed Fern Chase [facility] 09/08/2014 16:00:57 Tonsillectomy completed Fern Chase [facility] 09/08/2014 16:00:57 Imaging Results None recorded. Procedure Notes None recorded. Medical Equipment None Reported. Allergies Allergen ID Allergen Name Allergen Category Reaction Reaction Severity Criticality Documentation Date Start Date Code Code System Note Provider Name and Address Organization Details Recorded Time 656584 Product containin g penicilli n (product) medicatio n facial swelling severe Not available 02/05/2020 31027 8001 SNOMED KELSEY Fishman, [facility] 0 12:12:53 105182 theophyll ine medicatio n Not available Not available Not available 02/05/2020 18526 RxNorm Aniyah KELSEY Morgan null, [place] - [facility] 0 12:14:17 Medications Name Sig Start Date [...] Organization Details Last Updated DateTime 162.56 cm 43.8 kg/m2 439090. 34 g 98 /min 95 % 95 % 118 mm[Hg] 78 mm[Hg] Aniyah Morgan MA [facility] 1 12:46:13 Social History Question Answer Notes LastModified by Organizat ion Details LastModified Time Tobacco Smoking Status Former Smoker Fern Chase bryan, [facility] 09/08/2014 16:00:57 What Was The Date Of [...] virus, trivalent, PF 4 completed Not Available [facility] 10/31/2019 02:33:25 Influenza, split virus, quadrivalent, preservative 5 completed Not Available [facility] 10/31/2019 02:32:09 Past Encounters Encounter ID Performer Location Encounter Start Date Encounter Closed Date Diagnosis/Indication Diagnosis SNOMED-CT Code Diagnosis ICD10 Code Diagnosis Note [id number] [facility] [address] [place] [id number] 0 09/08/2014 15:29:08 09/10/2014 15:43:52 Influenza 4025233 Asthma [id number] Melissa Mcfadden MD [facility] (Adult Med) [address] [place] [address] [id number] 0 11/16/2014 09:39:19 11/16/2014 11:05:55 Asthma 483651647 Influenza 0206445 Acute bronchitis 10588516 Carrier of cystic fibrosis gene mutation 577701794 Hypothyroidism 73676818 [id number] Melissa Mcfadden MD [facility] (Adult Med) [address] [place] [address] 60028-949 0 12/15/2014 09:36:02 12/15/2014 14:42:38 Acute otitis media 9935000 Asthma 306590527 Carrier of cystic fibrosis gene mutation 882749900 Hypothyroidism 54022911 Obesity 079522118 [id number] [facility] [address] [place] [address] 50222-139 0 04/11/2015 16:10:53 04/11/2015 17:30:08 Anterior knee pain 735475998 Asthma 858322986 [id number] Melissa Mcfadden MD [facility] (Adult Med) [address] [place] [address] 94944-480 0 2015 15:04:17 2015 15:41:34 Anterior knee pain 023276672 Hypothyroidism 41525202 Obesity 852121490 [id number] Melissa Mcfadden MD [facility] (Adult Med) [address] [place] [address] 78251-325 0 07/26/2015 12:03:48 07/26/2015 13:27:55 Anterior knee pain 988407672 M25.569 Asthma 317157795 J45.90 9 Hypothyroidism 39923499 E03.9 Obesity 259236904 E66.9 Carrier of cystic fibrosis gene mutation 848421862 Z14.1 Administra tion of influenza vaccine 32014073 Z23 [id number] [facility] [address] [place] [address] 72656-865 0 08/30/2015 14:21:28 08/31/2015 09:50:13 Acute bronchitis 41133232 J20.9 Asthma 803025291 J45.90 9 Obesity 478849772 E66.9 Migraine 58084469 G43.90 9 [id number] MD [facility] (Adult Med) [address] [place] [address] 76674-289 0 09/28/2015 11:54:54 09/29/2015 12:30:18 Asthma 882945619 J45.909 Lesion of scalp 75657866 91 00 L98.9 Obesity 996363723 E66.9 Tinea corporis 47930639 B35.4 [id number] Melissa Mcfadden MD [facility] (Adult Med) [address] [place] [address] 43792-355 0 01/05/2016 12:11:53 01/05/2016 17:29:29 Acute bronchitis 25490605 J20.9 Asthma 898358141 J45.90 9 Carrier of cystic fibrosis gene mutation 340362516 Z14.1 [id number] Melissa Mcfadden MD [facility] (Adult Med) [address] [place] [address] 24946-762 0 08/02/2016 12:08:29 08/02/2016 13:35:50 Furuncle 781625712 L02.92 [id number] Melissa Mcfadden MD [facility] (Adult Med) [address] [place] [address] 86360-103 0 01/01/2017 16:08:52 01/02/2017 13:36:19 Acute bronchitis 58210197 J20.9 Asthma 622350496 J45.90 9 Morbid obesity 524405030 E66.01 Diet, exercise and lose weight she agreed. [id number] MD [facility] (Adult Med) [address] [place] [address] [id number] 0 07/17/2017 14:46:25 07/18/2017 11:47:32 Acute bronchitis 74676529 J20.9 Cellulitis 872898586 L03 .90 Will be put on cipro 500 mg twice/day for 10 dys. Asthma 304667737 J45.90 9 MD [facility] (Adult Med) [address] [place] [address] 52505-113 0 12/27/2017 11:42:08 12/27/2017 13:43:17 Asthma 599860505 J45.909 On inhalers. Ex-smoker 3497258 Z87.89 1 Morbid obesity 979185141 E66.01 Diet, exercise and lose weight she agreed. williing to try naltrexone and wellbutrin sr to lose weight. [id number] MD [facility] (Adult Med) [address] [place] [address] 63838-966 0 03/07/2018 16:51:35 03/11/2018 11:54:37 Asthmatic bronchitis 559394707 J45.909 Go to ER any time for any concern she understood and agreed. [id number] MD [facility] (Adult Med) [address] [place] [address] 55085-107 0 07/23/2018 12:13:26 07/24/2018 09:48:30 Acute bronchitis 49196889 J20.9 Asthma 115992135 J45.90 9 On inhalers. [id number] MD [facility] (Adult Med) [address] [place] [address] 93638-637 0 03/05/2019 16:00:57 03/05/2019 17:30:54 Acute otitis media 0942479 H66.91 Acute bronchitis 0927402 2 J20.9 Asthma 694044973 J45.90 9 On inhalers. [id number] MD [facility] (Adult Med) [address] [place] [address] [phone] 0 07/23/2019 16:29:19 07/23/2019 18:02:08 Acute respiratory infections 102535881 J22 She wants steroid pill aling with antibiotic s. [id number] [facility] (Adult Med) [address] [place] [address] [id number] 0 02/05/2020 10:43:01 02/08/2020 12:27:27 Asthma 382132307 J45.909 Hx of well controlled asthmaUses her albuterol inhaler infrequent ly, usually only a couple times per month- continue with albuterol inhaler and nebulizer- continue with maintenanc e inhaler Acute resp iratory infections 264812242 J22 Complainin g of a head cold [...] extra rest and do not over-exert yourself. [id number] MD [facility] (Adult Med) [address] [place] [address] 55811-296 0 11/14/2020 08:25:17 11/15/2020 08:30:32 Acute exacerbation of chronic obstructive pulmonary disease 297711408 J44.1 dISCUSSED WITH PATIENT, SHE wants MEDICATION S refilledD BELOW. [id number] MD [facility] (Adult Med) [address] [place] [address] [id number] 0 05/08/2021 14:14:20 05/15/2021 22:13:48 Acute otitis media 0265132 H66.91 Discussed wit patient, she agreed as ordered. Asthma 907585284 J45.90 9 On inhalers. [id number] MD [facility] (Adult Med) [address] [place] [address] [id number] 0 05/26/2021 12:11:46 05/29/2021 12:36:11 Acute exacerbation of chronic obstructive pulmonary disease 035339630 J44.1 DISCUSSED WITH PATIENT, SHE wants MEDICATION S refill BELOW. Advised her to go to ER any time for any concern. She agreed. Chronic ob structive pulmonary disease 79653318 J44.9 Has inhalers at home. [id number] MD [facility] (Adult Med) [address] [place] [address] 08/07/2021 08:21:56 08/09/2021 14:17:58 Acute bronchitis 68900124 J20.9 [place] cold , discussed with patient, declines covid virus test. Wants abx , steroid and refill med. Asthma 820890770 J45.90 9 On inhalers. [id number] MD [facility] (Adult Med) [address] [place] [address] 08/11/2021 12:31:54 08/15/2021 15:13:08 Hypertensive disorder 41233812 I10 Advised to stay on low salt diet, avoid NSAID such as ibuprofen, naproxen or OTC decongesta nt if possible. Seasonal allergy 4287543 04 J30.2 Will try some medication s as ordered today. Health Concerns Section Related Observation LastModified by Organization Detai ls LastModified Time None Recorded Concern Status LastModified by Organization Details LastModified Time None Recorded Advance Directives Directive None Recorded Payers Insurance Date Sequence Insurance Name Policy Number Policy Miranda Covered Member ID Miranda Member ID Guarantor Name 08/15/2021 1 [facility] (MEDICAID HMO) [id number] Noris Casas [id number] Noris Casas 07/24/2018 2 *SELF PAY* Br rosalien Casas Notes Date Note Type Note Provider [...] AGREES. Melissa Mcfadden MD Attn: [address] [place], [address], [facility] 11/14/2020 12:07:52 05/08/2021 text/html Phone visit, due to torres virus pandemic, she understood and agreed, allergic to penicillins and theophylline, C/C ear hurting , wants to try some abx and refill other regular medications. Melissa Mcfadden MD Attn: [address] [facility], [place], [address], [place] [facility] 05/08/2021 15:02:47 05/26/2021 text/html Phone visit, due to torres virus pandemic, allergic to penicllins and theophylline. histroy of COPD and former smoker , had covid infection in February 2021, recently chest congestion, wants abx and short term steroid, declines re- test covid 19. Melissa Mcfadden MD Attn: [address] [facility], [place], [address], [place] [facility] 05/26/2021 14:05:45 08/07/2021 text/html Phone visit, due to torres virus pandemic., allergic to penicillins and theophylline, C/C Chest cold, chest congestion, no fever, declines for covid test, wants refill her regular medications and ABX and shortterm steroid. Melissa Mcfadden MD Attn: [address] [facility], [place], [address], [place] [facility] 08/07/2021 11:05:19 08/11/2021 text/html Office visit, 1. [...] informed. Melissa Mcfadden MD Attn: [address] [facility], [place], [address], [place] [facility] 08/11/2021 13:10:00 OBGyn Episode No OBEpisode recorded.
--- OUTSIDE RECORDS SUMMARY | 2025-03-26 11:57 | XMS_ITS | Clinical Summary ---
Author Organization [facility] Address [address] [facility] [place] [address] Care Team Providers Care Restorative Aide Name Role Phone Terri Muir MD Primary Care Provider [phone] Source Comments [facility],non-owned Affiliates and Associated Physician Practices is amultiple site organization consisting of ambulatory clinics and hospital sitesin [place], [place], [place] and [place]. This disclosure is being madepursuant to the Care Everywhere program and may not contain all information available regarding this patient. Last updated 18.[facility] Allergies Active Allergy Reactions Criticality Noted Date [...] Type Department Care Team Description 02/22/2025 Refill [facility] - Pulmonology [address], [address] [place] [address] Alex Tapia MD MEDICATION REFILL from Last 3 Months Family History Medical History Relation Name Comments Diabetes - Type 2 Father Hypertension Father Asthma Mother COPD - Chronic Obstructive Pulmonary Disease Mother Diabetes - Type 2 Mother Relation Name Status Comments Father Alive Mother Alive Social History Tobacco Use Types Packs/Day Years Used Date Smoking Tobacco: Former Cigarettes 1 25.4 S tarted: 1999 Smokeless Tobacco: Former Quit: 2011 Tobacco Cessation:Counseling Given: Yes Alcohol Use Standard Drinks/Week Comments Never 0 (1 standard drink = 0.6 oz pur e alcohol) Comments Unknown Sex and Gender Information Value Date Recorded Sex Assigned at Not on file 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 Gender Identity Not on file Sexual Orientation [...] - 19+ 3-dose series) 2004 COVID-19 VACCINE (2023-2 5 season) 2024 DEPRESSION SCREENING 10/14/2024 INFLUENZA [...] patient's age to complete this topic Insurance [facility] SELF PAY NO INSURANCE Member Subscriber Plan / Payer (Ef fective for All Dates) Name:Noris Casas Member ID:Not on file Relation to Subscriber:Not on file Name:NORIS CASAS Subscriber ID:Not on file (Home) Address: [address] [place] [address] [place] [address] Payer ID:Not on file Group ID:Not on file Type:Self Pay Address: [place], [place] [facility] Care Teams Restorative Aide Relationship Specialty Start Date End Date Terri Muir MD [facility] [place] [address] PCP - General Family Medicine 04/30/22
--- NOTE | 2025-03-26 12:00 | ECG_ITS ---
Test Date: 2025-03-26 12:29:33 Measurements Intervals Hartley Rate: 82 P: 10 RI: 143 QRS: 18 QRSD: 91 T: 3 QT: 355 QTc: 417 Interpretive Statements SINUS RHYTHM CONSIDER INFERIOR INFARCT, AGE INDETERMINATE ABNORMAL ECG No previous ECG available for comparison Electronically Signed On 03-26-2025 13:17:04 CDT by Daniel Vazquez D.O.
[2025-03-26 12:37] LABS: Hematocrit 32.6 % (37.0-47.0); Hemoglobin 10.4 g/dL (12.0-15.0); Mean Corpuscular HGB Conc 31.9 g/dl (32-36); Mean Corpuscular Hemoglobin 28.3 pg (26-34); Mean Corpuscular Volume 88.6 fl (80-100); Mean Platelet Volume 9.4 fl (7.4-10.4); Platelet Count Result 369 k/mm3 (150-375); Red Blood Count 3.68 M/mm3 (4.2-5.4); Red Cell Distribution Width 14.6 % (11.5-14.5); White Blood Count 8.4 K/mm3 (4.5-10.0)
== END 2025-03-26 11:52 | disposition home or self-care (01) ==
LOC: ANHSURGERY 11:55
PROVIDERS: PCP Physician Assistant; Visit Provider Obstetrics & Gynecology
DX: Z30.09 Encounter for other general counseling and advice on contraception (principal); I10 Essential (primary) hypertension
CPT/HCPCS: 36415; 85027; 93005

== ENCOUNTER 2025-04-01 02:11 | Day surgery (SDC) | payer OTHER, SELFPAY ==
--- NOTE | 2025-03-23 16:43 | PC.NURSE ---
Report to the Outpatient Waiting Room, entrance under the green pavilion located off [facility], at time 0715 on date 04/01/25. Planned Procedure Time: 0915? Time changes happen often and if your time is changed the preop area will call you the afternoon before. - You and your visitor will be asked to self-screen and do not enter if you have any COVID symptoms. Please call surgeon if you need to reschedule. - A mask is optional within the hospital at this time. Patients may have clear liquids (water, carbonated beverages, clear teas, apple juice) until 3 hours prior to surgery with a maximum of 20 ounces. 0615 - No food from midnight until time of surgery and no smoking, or chewing tobacco (or any form of nicotine). No chewing gum, candy or mints. - Infants may have breast milk until 4 hours before surgery, formula 6 hours prior to surgery. - Children will be allowed to drink immediately following surgery.? If applicable, please bring a bottle or sippy cup to assist with drinking. Juice, water, soda, and popsicles are readily available.? For infants on formula, please bring formula the day of surgery.? Pacifiers are allowed. Take only the following medications with a SIP of water on the morning of surgery: inhalers DO NOT STOP ANY OF YOUR OTHER PRESCRIPTION MEDICATIONS PRIOR TO SURGERY EXCEPT THE FOLLOWING Hold all vitamins and supplements for 3 days per anesthesiologist. Medications to discontinue per physician montelukast, losartan, omeprazole, celebrex Date to take last dose hold all vitamins and supplements for 3 days prior to surgery, called Dr. Alvarez's office regarding when to stop celebrex Please no make-up, nail greenlandic, hairspray, perfume, deodorant, or body powder the day of surgery.? No jewelry (including any body piercings) or valuables the day of surgery, leave them at home.? Please take a shower or bath the night before, or the morning of, surgery with an antibacterial soap.? Wear comfortable, loose fitting clothing.? Children are encouraged to wear pajamas. - Jewelry must be removed prior to entering the operating room.? Rings and piercings that are not removed may be cut off. - The hospital will not accept responsibility for valuables.? - Please leave all valuables, including medications, at home the day of surgery. If you are going home after surgery, a licensed hazardous materials driver must drive you home.? - NO public transportation without another adult if you receive anesthesia. - We recommend that an adult stay with you for 24 hours following discharge. - We also recommend that you do not drive, make important decision, drink alcoholic beverages, or take any drugs that were not prescribed by your health care provider for at least 24 hours after your discharge time. For Pediatric surgeries, we recommend two adults accompany the child home. Follow any additional instructions given to you from your surgeon. Telephone instructions given to Patient- Yoselin Stokes and asked if any additional questions and then verbalized understanding. Patient advised to call surgeon office or pre surgery nurse liaison [phone] if any additional questions.
--- NOTE | 2025-03-31 15:48 | WPDHPUPDATE1 ---
History and Physical Update Update Date/Time: 03/31/25 15:48 39-year-old female presents for permanent sterilization procedure. Was in earlier last month for hysteroscopy D&C endometrial ablation which she did well with. Presents today for bilateral salpingectomy. Was unable to perform with her hysteroscopy due to inadequate time since counseling for her IDPH forms. We have discussed permanence, failure rate, increased risk of regret and ectopic . Patient states good understanding strongly desires to proceed. Plan: 1. Proceed with laparoscopic bilateral salpingectomy. History and Physical has been reviewed, including an updated exam of the patient. There are NO changes in the patient's condition. Risks, benefits, and alternatives have been discussed and questions answered. Patient agrees to proceed with procedure.
[2025-04-01] VITALS (11 sets, daily range): BP systolic 122–150; BP diastolic 65–79; PULSE 81–97; RESP 11–20; TEMP 36.4–36.5; O2SAT 97–100
--- OUTSIDE RECORDS SUMMARY | 2025-04-01 02:14 | XMS_ITS | CONTINUITY OF CARE DOCUMENT ---
Author Name benjamin alexander Address Unknown Organization [facility] Address [address] [place] [address] Phone [phone] Care Team Providers Care Staff Reporter Name Role Phone Brian DICKSON, Akash Unavailable CARLOS MARRUFO MD Unavailable [phone] INSURANCE PROVIDERS Payer name Policy type / Coverage type [employer] party ID [place] MED[employer] Medicaid [id number]
--- OUTSIDE RECORDS SUMMARY | 2025-04-01 02:15 | XMS_ITS | Clinical Summary ---
Author Organization [facility] Address [address] [facility] [place] [address] Care Team Providers Care Voice Teacher Name Role Phone Terri Muir MD Primary Care Provider [phone] Source Comments [facility],non-owned Affiliates and Associated Physician Practices is amultiple site organization consisting of ambulatory clinics and hospital sitesin [place], [place] and [place]. This disclosure is being madepursuant to the Care Everywhere program and may not contain all information available regarding this patient. Last updated 18.[facility] Allergies Active Allergy Reactions Criticality Noted Date [...] Type Department Care Team Description 02/22/2025 Refill [facility] - Pulmonology [address] [facility], [address] [place] [address] Alex Tapia MD MEDICATION REFILL from Last 3 Months Family History Medical History Relation Name Comments Diabetes - Type 2 Father Hypertension Father Asthma Mother COPD - Chronic Obstructive Pulmonary Disease Mother Diabetes - Type 2 Mother Relation Name Status Comments Father Alive Mother Alive Social History Tobacco Use Types Packs/Day Years Used Date Smoking Tobacco: Former Cigarettes 1 25.5 S tarted: 1999 Smokeless Tobacco: Former Quit: 2011 Tobacco Cessation:Counseling Given: Yes Alcohol Use Standard Drinks/Week Comments Never 0 (1 standard drink = 0.6 oz pur e alcohol) Comments Unknown Sex and Gender Information Value Date Recorded Sex Assigned at Not on file 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 Gender Identity Not on file Sexual Orientation [...] patient's age to complete this topic Insurance [facility] SELF PAY NO INSURANCE Member Subscriber Plan / Payer (Ef fective for All Dates) Name:Noris Casas Member ID:Not on file Relation to Subscriber:Not on file Name:NORIS CASAS Subscriber ID:Not on file (Home) Address: [address] [place] [address] [place] [address] Payer ID:Not on file Group ID:Not on file Type:Self Pay Address: [place], [place] [facility] Care Teams Voice Teacher Relationship Specialty Start Date End Date Terri Muir MD [facility] [place] [address] PCP - General Family Medicine 04/30/22
--- OUTSIDE RECORDS SUMMARY | 2025-04-01 02:15 | XMS_ITS | Data Portability ---
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 She voiced understanding agrees with the [...] Modified Time Details Appointments Any 5 2024 01:15P M KULWANT Tinsley Not available Not available Not available Follow Up 30 2024 02:30P ZUHAIR Soares Not available Not available Not available Lab None recorded. Referral physical therapist referral - Please contact patient to schedule. ..Thank you 2024 025 [email or web address] [facility], [address] [place], [address], 02/18/2025 08:17:30 Procedures injection /aspirati on joint/bur sa (PROC) 2024 025 [email or web address] In-Office Order, Internal Use Only DO Not Attach Compendium DO Not Attach Compendium, Do Not Delete/merge, [id number] 02/04/2025 14:58:21 Surgeries None recorded. Imaging None recorded. Medication Orders Spiriva Respimat 1.25 mcg/actua tion solution for inhalatio n 2024 025 [facility]51820, [address] [facility], [place], [place], [id number], 03/02/2025 14:32:08 bupivacai ne HCl 0.5 % (5 mg/mL) injection solution 2024 025 [email or web address] [facility] #06814, [address], [place], [place], [id number], 02/04/2025 16:07:58 Kenalog 10 mg/mL suspensio n for injection 2024 025 [facility] #40489, [address], [place], [place], [id number], 03/18/2025 09:04:17 celecoxib 200 mg capsule 2024 025 [email or web address] [facility] #85312, [address], [id number], 02/04/2025 16:07:58 diclofena c sodium 75 mg tablet,de layed release 2024 025 [email or web address] [facility] #38142, [address], [id number], 03/02/2025 13:55:[address] 10 mg tablet 2024 025 [facility] #09664, [address], [id number], 01/29/2025 11:42:35 omeprazol e 40 mg capsule,d elayed release 2024 025 [facility] #04249, [address], [id number], 01/29/2025 11:42:34 cholecalc iferol (vitamin D3) 50 mcg (2,000 unit) capsule 2024 025 [facility] #34858, [address], [id number], 01/29/2025 11:42:33 losartan 50 mg tablet 2024 025 [facility] #25294, [address] , [place], [place], [id number], 01/29/2025 11:42:36 Medrol (Allen) 4 mg tablets in a dose pack [address] [facility] #69677, [address] , [place], [place], [id number], 03/02/2025 13:56:14 azithromy nehal 250 mg tablet [address]32519, [address] [facility] [place], [place], [id number], 03/02/2025 13:55:28 diclofena c sodium 75 mg tablet,de layed release [address]05507, [address] [place], [id number], 03/02/2025 13:55:23 albuterol sulfate HFA 90 mcg/actua tion aerosol inhaler [address]69444, [address] [place], [id number], 12/01/2024 15:50:09 albuterol sulfate 2.5 mg/3 mL (0.083 %) solution for nebulizat ion [address]44661, [address] [facility] [place], [place], [id number], 12/01/2024 15:50:09 Depo-Medr ol 80 mg/mL suspensio n for injection 2024 025 Not available 01/29/2025 11:27:48 prednison e 20 mg tablet [address] [facility] #85672, [address] , [place], [place], [id number], 01/29/2025 11:28:01 cholecalc iferol (vitamin D3) 50 mcg (2,000 unit) capsule 2024 025 [facility] #71837, [address] , [place], [place], [id number], 12/01/2024 15:53:50 sumatript an 100 mg tablet [address] [facility] #42291, [address] [facility] [place], [place], [id number], 01/29/2025 11:28:35 cyanocoba dimas (vit B-12) 1,000 mcg sublingua l tablet 2024 025 [facility] #64573, [address] , [place], [place], [id number], 12/01/2024 15:53:51 Patient TargetsNo targets recorded. Patient [...] resul t No observ ation record ed. [facility] [address], [place], [address], 03/02/2025 15:50:40 Result Notes None recorded. Problems Name Problem SNOMED Code Status Onset Date Resolution Date Notes Provider Name and Address Organization Details Recorded Time Allergic rhinitis 44094841 Active 2022 Not Available [facility] 3 19:29:27 Essential hypertens ion 11897952 Active 2022 Not Available [facility] 3 19:29:27 Low back pain 681743754 Active 2022 Not Available [facility] 3 19:29:27 Bilateral sacroilia c joint pain 27304423204 795133 Active 2022 Not Available [facility] 3 19:29:27 Acute right otitis media 010679319 Active 2022 Not Available [facility] 3 19:29:27 Pharyngit is 143748874 Active 2022 Not Available [facility] 3 19:29:27 Aphthous ulcer of mouth 958688707 Active 2022 Not Available [facility] 3 19:29:27 Hyperlipi demia 03752132 Active 2022 Terri Muir MD [address], [address], [place], [address] , [employer] 3 14:27:44 Hidradeni tis suppurati va 04924504 Active 2022 Terri Muir MD [address], [address], [place], [address] , [employer] 3 14:30:45 Acid reflux 865957462 Active 2022 Terri Muir MD [address], [address], [place], [address] , [employer] 3 06:34:31 Adult health examinati on Active 2023 KULWANT Mendieta [address], [address], [place], [address] , [employer] 4 14:46:37 Obese 945831159 Active 2023 KULWANT Mendieta [address], [address], [place], [address] , [place] [facility] 4 14:47:26 Degenerat ion of lumbar intervert ebral disc 29047389 Active 2023 KULWANT Tinsley [address], [address], [place], [address] , [place] [facility] 4 15:31:50 Sinusitis 76570825 Active 2023 KULWANT Mendieta [address], [address], [place], [address] , [place] [facility] [employer] 4 12:36:50 Nausea 320071594 Active 2023 KULWANT Mendieta [address], [address], [place], [address] , [place] [facility] [employer] 4 12:37:06 Migraine 50903968 Active 2024 KULWANT Mendieta [address], [address], [place], [address] , [place] [facility] [employer] 5 15:49:21 Serum vitamin B12 below reference range 052303152 Active 2024 KULWANT Mendieta [address], [address], [place], [address] , [place] [facility] [employer] 5 15:51:48 Vitamin D deficienc y 71882266 Active 2024 KULWANT Mendieta [address], [address], [place], [address] , [place] [facility] 5 15:52:26 Upper respirato ry infection 61825828 Active 2024 ZUHAIR Bartlett [address], [address], [place], [address] , [place] [facility] 5 11:39:08 Disorder of shoulder 791980172 Active 2020 Not Available [employer] 3 19:29:27 Backache 033192999 Active Not Available [facility] 3 19:29:27 Asthma 360127541 Active 2020 Not Available [facility] 3 19:29:27 Leukorrhe a 487324014 Completed Not Available [facility] 3 00:51:50 Hypertens navjot disorder 70474992 Active 2020 Not Available [facility] 3 19:29:27 Sprain of ankle 45334768 Completed Not Available [facility] 3 00:51:50 Pain of breast 95513504 Completed Not Available [facility] 3 00:51:51 Notes:Some problems listed i n Documents: #[id number], #[id number] could not be added to this patient's chart. Please review these documents and add these problems to the patient's chart manually as needed. Problem Notes None recorded. Procedures Surgical History Date Name Laterality Status Provider Name and Address Organization Details Recorded Time 08/06/20 23 Suture/Staple removal completed Terri Muir MD [address] [facility], [place], [address], [employer] 08/07/2023 06:57:21 05/28/20 23 Ortho - Cortisone Injection completed Ryne Franklin MD [address], [place], [address], Identified [facility] 05/28/2023 15:04:32 04/30/20 23 Ortho - Cortisone Injection completed Ryne Franklin MD [address], [place], [address], [employer] [facility] [employer] [facility] 04/30/2023 15:51:21 09/20/20 16 Date of Last Pap Smear completed Not Available [facility] 12/12/2022 00:43:06 11/25/19 16 other completed Not Available [facility] 3 00:43:11 MASTER TECHNICIAN Procedure completed Not Available [facility] 12/12/2022 00:43:11 MASTER TECHNICIAN Procedure completed Not Available [facility] 12/12/2022 00:43:11 Tubal Ligation completed Not Available [facility] 12/12/2022 00:43:11 Tonsillectomy completed Not Available [facility] 12/12/2022 00:43:11 Imaging Results None recorded. Procedure Notes None recorded. Medical Equipment None Reported. Allergies Allergen ID Allergen Name Allergen Category Reaction Reaction Severity Criticality Documentation Date Start Date Code Code System Note Provider Name and Address Organization Details Recorded Time 1407 theophyll ine medicatio n rash Not available Not available 12/12/2022 49739 RxNorm as child Not Available [facility] 3 01:03:16 1408 Product containin g penicilli n (product) medicatio n hives severe Not available 12/12/2022 71109 8001 SNOMED Not Available [facility] 3 01:03:16 Medications Name Sig Start Date [...] 40 mg by injection route. 2024 active [facility]: 0003- 0494- 20 Not Available Not Available [...] 40 mg by injection route. 09/01 completed [facility] 48595 -064- 01 Not Available Not Available Not [...] Updated DateTime 10/15/2024 162.56 cm 46.3 kg/m2 394739.94 g Shobha Hall [facility] [employer] [facility] 10/15/2024 15:14:17 Date Recorded Body height Body mass index (BMI) Body weight Body temperature Heart rate Oxygen saturation Oxygen saturation in Arterial blood by Pulse oximetry Systolic blood pressure Diastolic blood pressure Provider Name and Address Organization Details Last Updated DateTime 5 162.56 cm 44.4 kg/m2 469353. 35 g 98.6 [degF] 88 /min 98 % 98 % 132 mm[Hg] 92 mm[Hg] Denzel Mejia RN [facility] [employer] [facility] 5 15:39:04 Date Recorded Body height Body mass index (BMI) Body weight Body temperature Heart rate Respiratory rate Oxygen saturation Oxygen saturation in Arterial blood by Pulse oximetry Systolic blood pressure Diastolic blood pressure Provider Name and Address Organization Details Last Updated DateTime 5 162.56 cm 45.5 kg/m2 419836. 98 g 97.6 [degF] 103 /min 24 /min 98 % 98 % 128 mm[Hg] 82 mm[Hg] Kate Wellington RN [facility] [employer] [facility] 5 11:31:13 Date Recorded Body height Provider Name an d Address Organization Details Last Updated DateTime 02/04/2025 162.56 cm Cherelle Torres [facility] [employer] [facility] 02/04/2025 14:42:59 Date Recorded Body height Body mass index (BMI) Body weight Body temperature Oxygen saturation Oxygen saturation in Arterial blood by Pulse oximetry Heart rate Systolic blood pressure Diastolic blood pressure Provider Name and Address Organization Details Last Updated DateTime 5 162.56 cm 46.5 kg/m2 772804. 53 g 98.6 [degF] 97 % 97 % 103 /min 112 mm[Hg] 82 mm[Hg] MILKA Rodríguez [facility] [employer] [facility] 13:58:23 Social History Question Answer Notes LastModified by Organizat ion Details LastModified Time Tobacco Smoking Status Former Smoker 1ppd Not Available [facility] 12/12/2022 00:42:08 What Is Your Level Of [...] Many Years Have You Smoked Tobacco? 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 Current user of electronic cigarettes Information not available 08/25/2024 What is your exercise level? None Information not available 01/29/2025 Mental Status Question Answer Note LastModified by Organization D etails LastModified Time Do you feel stressed (tense, restless, nervous, or anxious, or unable to sleep at night)? [id number] Information not available 01/29/2025 Family History Relationship Description Onset Age of this Age Resolved Age Notes LastModified by Organization Details LastModified Time Mother Diabetes mellitus [id number] Not available 12/12/2022 00:43:17 Mother Essential hypertension [email or web address] Not available 13:51:04 Mother Family history of stroke [email or web address] Not available 2024 13:51:04 Father Heart disease [id number] Not available 12/12/2022 00:43:17 Maternal Grandmother Malignant neoplasm of lung [email or web address] Not available 2024 13:51:04 Father Essential hypertension Not available 13:51:04 Medical History Condition Response BLINDNESS N RHEUMATIC FEVER N BLADDER PROBLEMS N KIDNEY STONES N MRSA N OTHER # 1 N POLIO N LUNG DISEASE/DISORDER N HISTORY OF DRUG ABUSE N RADIATION / CHEMOTHERAPY N COPD N Other # 2 N BLOOD DISEASES N SURGERY N EAR OR HEARING PROBLEMS N MUMPS N SHINGLES N BOWEL PROBLEMS N DEPRESSION (INCLUDING POST ) N FEMALE PROBLEMS / INFECTIONS N STROKE/TIA N THYROID DISEASE N ULCERS [...] HAVE YOU BEEN HOSPITALIZED OR SEEN IN [facility] IN THE PAST YEAR ? N [...] N PAIN N HERPES N DEMENTIA N SEIZURES/EPILEPSY N HEADACHES/MIGRAINES Y VASCULAR DISEASE N PACEMAKER N DIZZINESS N KIDNEY DISEASE N HEART DISEASE/HEART PROBLEMS N SCARLET FEVER N MULTIPLE SCLEROSIS N MENTAL DISORDER/ILLNESS N DEVELOPMENTAL OR BEHAVIORAL DISORDERS N CARDIAC ARRHYTHMIA N CANCER: SPECIFY Y PNEUMONIA Y Gall Stones N ATRIAL FIBRILLATION N PULMONARY EMBOLISM N AUTOIMMUNE DISEASE N [...] Immunizations Vaccine Type Date Status Note Provider [facility] raúl and Address Organization Details Recorded Time Influenza, split virus, quadrivalent, PF 08/22/2023 completed Terri Muir MD [address], [place], [address], [place] [facility] 08/23/2023 06:34:19 Past Encounters Encounter ID Performer Location Encounter Start Date Encounter Closed Date Diagnosis/Indication Diagnosis SNOMED-CT Code Diagnosis ICD10 Code Diagnosis Note [id number] [facility] _ATHENA_M IGRATION_ DEFAULT_1 _1 , 12/12/2020 00:00:00 12/12/2020 11:33:46 [id number] [facility] _ATHENA_M IGRATION_ DEFAULT_1 _1 , 12/22/2020 00:00:00 12/22/2020 11:00:38 [id number] Terri Muir MD [facility] fleming [address] [place] [address] [place] [address] 09/27/2021 00:00:00 09/27/2021 20:11:52 [id number] Terri Muir MD [facility] llraúl [address] [place] [address] [place] [address] 01/11/2022 00:00:00 01/11/2022 20:00:41 [id number] Terri Muir MD [facility] ll[facility] [place] [address] [place] [address] 01/30/2022 00:00:00 01/30/2022 11:47:07 [id number] Terri Muir MD [facility] fleming [address] [place] [address] [place] [address] 03/29/2022 00:00:00 03/29/2022 14:08:12 [id number] Ryne Franklin MD [facility] Ortho Sonya Madrigal [address] [place] [address] 04/30/2023 14:48:02 04/30/2023 16:07:25 Low back pain 349276359 M54.50 Bilateral sacroiliac joint pain 5260870536 8726350 M53.3 [id number] Ryne Franklin MD [facility] Ortho [place] [address] [place] [address] 05/28/2023 13:47:05 05/28/2023 15:33:58 Low back pain 154634649 M54.50 Bilateral sacroiliac joint pain 7152329663 3088474 M53.3 [id number] Ryne Franklin MD [facility] Ortho [place] [address] [place] [address] 06/25/2023 14:57:12 06/25/2023 15:13:33 Bilateral sacroiliac joint pain 5162145531 7453561 M53.3 [id number] Frankie Puga MD [facility] Ortho [place] [address] [place] [address] 07/25/2023 14:22:28 07/25/2023 15:09:25 Bilateral sacroiliac joint pain 4979866578 7315995 M53.3 Low back pain 230165785 M54.50 [id number] Terri Muir MD [facility] [address] [place] [address] 08/06/2023 15:58:33 08/06/2023 16:37:36 Removal of suture 47885700 Z48.02 Sutures removed. Asthma 134381934 J45.90 9 Doing better with inhalers. Continue the same. [id number] Terri Muir MD [facility] lle [address] [place] [address] [place] [address] 08/07/2023 16:08:24 08/07/2023 16:40:52 Acute right otitis media 143194969 H66.91 Pharyngitis 577865407 J0 2.9 Gargles with warm salt water and do throat lozenges. Aphthous u lcer of mouth 188285493 K12.0 Use orajel [id number] Frankie Puga MD [facility] Ortho [place] [address] [place] [address] 08/13/2023 14:56:53 08/13/2023 16:22:42 Bilateral sacroiliac joint pain 3269145329 7978925 M53.3 Low back pain 499863139 M54.50 [id number] Terri Muir MD [facility] [address] [facility] [place] [address] 08/22/2023 14:06:47 08/22/2023 15:30:36 Adult health examination 419591591 Z00.00 Hyperlipidemia 12046848 E78.5 Hidradenit is suppurativa 43134167 L73.2 Heat and PRID Administra tion of influenza vaccine 96257600 Z23 Acid reflux 424475879 K2 1.9 [id number] Osmar Nixon MD [facility] [address] [facility] [place] [address] 08/25/2024 14:18:59 08/25/2024 14:53:39 Low back pain 881192082 M54.50 Bilateral sacroiliac joint pain 4486191484 9355900 M53.3 Adult heal th examination 785482477 Z00.00 Essential hypertension 20171797 I10 Hyperlipidemia 90756978 E78.5 Obese 378600173 E66.9 Pharyngitis 355445046 J0 2.9 [id number] Lit Mejia MD [facility] Ortho [place] [address] [place] [address] 09/01/2024 14:41:20 09/01/2024 15:25:05 Bilateral sacroiliac joint pain 3752907738 1488792 M53.3 Low back pain 138369565 M54.50 Degenerati on of lumbar intervertebral disc 16786457 M51.602 [id number] Osmar Nixon MD [address] [address] 10/02/2024 12:24:21 10/02/2024 13:13:19 Acute right otitis media 418343679 H66.91 Sinusitis 80258379 J32.9 Nausea 040082142 R11.0 Bilateral sacroiliac joint pain 4301239043 7756396 M53.3 Allergic rhinitis 696732 04 J30.9 Asthma 568509187 J45.90 9 Essential hypertension 09709708 I10 Obese 932806036 E66.9 [id number] Lit Mejia MD [facility] Ortho [place] [address] [place] [address] 10/15/2024 15:12:14 10/15/2024 15:48:12 Bilateral sacroiliac joint pain 5496472281 6532984 M53.3 Degenerati on of lumbar intervertebral disc 60878233 M51.369 Low back pain 497018780 M54.50 [id number] Osmar Nixon MD [facility] [address] [place] [address] 12/01/2024 15:27:52 12/01/2024 16:01:11 Asthma 448253131 J45.909 Bilateral sacroiliac joint pain 7930844864 2914461 M53.3 Migraine 73830428 G43.90 9 Serum tavo min B12 below reference range 704013363 R79.89 Vitamin D deficiency 347 98414 E55.9 [id number] Osmar Nixon MD [facility] [address] [place] [address] 01/29/2025 11:19:52 01/29/2025 13:57:20 Upper respiratory infection 32075720 J06.9 Cough, sore throat, concerns with possible hospitaliz ation due to asthma Vitamin D deficiency 347 68157 E55.9 Advised to continue supplement Bilateral sacroiliac joint pain 9753303335 1552911 M53.3 Essential hypertension 90555580 I10 Allergic rhinitis 675705 04 J30.9 Acid reflux 333635082 K2 1.9 [id number] Lit Mejia MD [facility]_[address] [address] 02/04/2025 14:40:57 02/04/2025 15:29:11 Bilateral sacroiliac joint pain 3604717262 6918891 M53.3 Degenerati on of lumbar intervertebral disc 64926965 M51.369 Low back pain 112701542 M54.50 [id number] Osmar Nixon MD S_[facility] [address] [address] 03/02/2025 13:50:24 03/02/2025 14:18:43 Asthma 509278347 J45.909 Allergic rhinitis 905222 04 J30.9 Degenerati on of lumbar intervertebral disc 30198912 M51.369 Essential hypertension 71399500 I10 Hidradenit is suppurativa 20333735 L73.2 Hyperlipidemia 49737708 E78.5 Low back pain 064983423 M54.50 Migraine 85030883 G43.90 9 Obese 435204448 E66.9 Serum tavo min B12 below reference range 478910201 R79.89 Vitamin D deficiency 347 47420 E55.9 Health Concerns Section Related Observation LastModified by Organization Detai ls LastModified Time None Recorded Concern Status LastModified by Organization Details LastModified Time None Recorded Advance Directives Directive None Recorded Payers Insurance Date Sequence Insurance Name Policy Number Policy Miranda Covered Member ID Miranda Member ID Guarantor Name 03/09/2025 1 [facility] (MEDICAID HMO) [id number] Yoselin Casas [id number] Yoselin Casas Notes Date Note Type Note [...] pretty well with conservative measures. KULWANT Tinsley [address] [place] [address], [facility] [address], [place], [address], [facility] 10/15/2024 15:30:20 12/01/2024 text/html needs refills KULWANT Mendieta [address], [place], [address], [facility] [employer] [facility] 12/04/2024 16:36:52 01/29/2025 text/html Yoselin Casas i s a 39 year old female patient here today for a sick visit Notes right ear pain, throat pain started yesterday morning, yesterday evening fever. Now productive cough. Would like med refills today ZUHAIR Bartlett [address], [place], [address], [facility] [employer] [facility] [employer] 01/29/2025 12:51:22 02/04/2025 text/html Patient returns she [...] lumbar pain as described. KULWANT Tinsley [address], [place], [address], [facility] [employer] 02/04/2025 15:06:17 03/02/2025 text/html needs refill spiriva respimat KUWLANT Mendieta [address], [place], [address], [facility] 03/09/2025 10:48:17 OBGyn Episode No OBEpisode recorded.
--- OUTSIDE RECORDS SUMMARY | 2025-04-01 02:15 | XMS_ITS | Data Portability ---
Author Organization [facility] [place] Address [address] [place] [address] Assessment No assessment recorded. Plan of Treatment Reminders Order Date Submit Date Provider Last Modified By Organization Details Last Modified Time Details Appointments None recorded. Lab None recorded. Referral None recorded. Procedures None recorded. Surgeries None recorded. Imaging None recorded. Medication Orders Bisi Allergy 180 mg tablet 2020 [facility], [address] [place] [address], [id number], 13:10:23 montelukas t 10 mg tablet 2020 [facility], [address] [place] [address], [id number], 13:10:21 losartan 25 mg tablet 2020 [facility], [address] [place] [address], [id number], 13:10:21 Qvar RediHaler 80 mcg/actuat ion HFA breath activated aerosol 2020 [facility], [address] [place] [address], [id number], 11:07:06 Ventolin HFA 90 mcg/actuat ion aerosol inhaler 2020 [facility], [address] [place] [address], [id number], 10/25/202 1 11:07:06 Zithromax Z-Allen 250 mg tablet 2020 021 [facility], [address] [place] [address], [id number], 1 11:07:07 albuterol sulfate 2.5 mg/3 mL (0.083 %) solution for nebulizati on 2020 [facility], [address] [place] [address], [id number], 1 11:07:05 Medrol (Allen) 4 mg tablets in a dose pack 2020 021 [facility], [address] [place] [address], [id number], 1 11:07:04 Medrol (Allen) 4 mg tablets in a dose pack 2020 021 [facility], [address] [place] [address], [id number], 1 14:08:31 Zithromax Z-Allen 250 mg tablet 2020 021 [facility], [address] [place] [address], [id number], 1 14:04:31 Qvar RediHaler 80 mcg/actuat ion HFA breath activated aerosol 2020 021 [facility], [address] [place] [address], [id number], 1 15:03:27 Ventolin HFA 90 mcg/actuat ion aerosol inhaler 2020 021 [facility], [address] [place] [address], [id number], 1 15:03:25 albuterol sulfate 2.5 mg/3 mL (0.083 %) solution for nebulizati on 2020 [facility], [address] [place] [address], [id number], 15:03:26 Zithromax Z-Allen 250 mg tablet 2020 [facility], [address] [place] [address], [id number], 12:37:02 Zithromax Z-Allen 250 mg tablet 2020 [facility], [address] [place] [address], [id number], 12:37:02 Medrol (Allen) 4 mg tablets in a dose pack 2020 [facility], [address] [place] [address], [id number], 14:16:11 Patient TargetsNo targets recorded. Patient Instructions Encounter Date Encounter Id Patient Instructions Last Modified By Organization Details Last Modified Time 05/08/2021 [id number] controlling your asthma: care instructions [facility] Not available 05/08/2021 15:02:41 learning about asthma [facility] Not available 05/08/2021 15:02:42 05/26/2021 [id number] chronic obstructive pulmonary disease (COPD): care instructions [facility] Not available 05/26/2021 14:05:22 learning about copd and how to prevent lung infections si Not available 05/26/2021 14:05:22 08/07/2021 [id number] bronchitis: care instructions [facility] Not available 08/07/2021 11:05:10 08/11/2021 [id number] seasonal allergies: care instructions [facility] Not available 08/11/2021 13:09:27 Reason for Referral None Reported. Problems Name Problem SNOMED Code Status Onset Date Resolution Date Notes Provider Name and Address Organization Details Recorded Time Acute bronchitis 83830704 Active Not Available [facility] 07:05:11 Hypothyroi dism 11306441 Active Not Available [facility] 3 07:05:12 Influenza 3759742 Active Not Available [facility] 3 07:05:12 Asthma 679544353 Active Not Available [facility] 3 07:05:11 Acute otitis media 7700374 Active Not Available [facility] 3 07:05:12 Obesity 283317426 Active Not Available [facility] 3 07:05:12 Anterior knee pain 960237223 Active Not Available [facility] 3 07:05:11 Migraine 31673154 Active Not Available [facility] 3 07:05:12 Lesion of scalp 637366713648 Active Not Available [facility] 3 07:05:12 Tinea corporis 50775423 Active Not Available [facility] 3 07:05:12 Problem Notes Documentation Provider Name and Address Organization Details Recorded Time Pulmonology Note : This document (1 of 1) was received from [email or web address] on 01/16/2024 through Direct Message along with the following message body content: Patient Name: NORIS CASAS. Patient : 1985. Patient . Leopoldo adams, [facility] 02/17/2024 11:22:12 Procedures Surgical History Date Name Laterality Status Provider Name and Address Organization Details Recorded Time Tubal Ligation completed Fern Chase [facility] 09/08/2014 16:00:57 Tonsillectomy completed Fern Chase [facility] 09/08/2014 16:00:57 Imaging Results None recorded. Procedure Notes None recorded. Medical Equipment None Reported. Allergies Allergen ID Allergen Name Allergen Category Reaction Reaction Severity Criticality Documentation Date Start Date Code Code System Note Provider Name and Address Organization Details Recorded Time 792544 Product containin g penicilli n (product) medicatio n facial swelling severe Not available 02/05/2020 85621 8001 SNOMED KELSEY Fishman, [facility] 0 12:12:53 472859 theophyll ine medicatio n Not available Not available Not available 02/05/2020 99600 RxNorm Aniyah KELSEY Morgan null, [place] - [...] Last Updated DateTime 162.56 cm 43.8 kg/m2 612847. 34 g 98 /min 95 % 95 % 118 mm[Hg] 78 mm[Hg] Aniyah Morgan MA [facility] 1 12:46:13 Social History Question Answer Notes LastModified by Organizat ion Details LastModified Time Tobacco Smoking Status Former Smoker Fern Chase bryan, [facility] 09/08/2014 16:00:57 What Was The Date Of [...] virus, trivalent, PF 4 completed Not Available [facility] 10/31/2019 02:33:25 Influenza, split virus, quadrivalent, preservative 5 completed Not Available [facility] 10/31/2019 02:32:09 Past Encounters Encounter ID Performer Location Encounter Start Date Encounter Closed Date Diagnosis/Indication Diagnosis SNOMED-CT Code Diagnosis ICD10 Code Diagnosis Note [id number] Melissa Mcfadden MD [facility] (Adult Med) [address] [place] [address] [id number] 0 09/08/2014 15:29:08 09/10/2014 15:43:52 Influenza 9468742 Asthma 576084100 [id number] Melissa Mcfadden MD [facility] (Adult Med) [address] [place] [address] [id number] 0 11/16/2014 09:39:19 11/16/2014 11:05:55 Asthma 917423952 Influenza 4893748 Acute bronchitis 51459579 Carrier of cystic fibrosis gene mutation 370853989 Hypothyroidism 60786237 [id number] Melissa Mcfadden MD [facility] (Adult Med) [address] [place] [address] [id number] 0 12/15/2014 09:36:02 12/15/2014 14:42:38 Acute otitis media 3546610 Asthma 753044705 Carrier of cystic fibrosis gene mutation 121064604 Hypothyroidism 16439949 Obesity 953236139 [id number] Melissa Mcfadden MD [facility] (Adult Med) [address] [place] [address] [id number] 0 04/11/2015 16:10:53 04/11/2015 17:30:08 Anterior knee pain 773385293 Asthma 442693883 [id number] Melissa Mcfadden MD [facility] (Adult Med) [address] [place] [address] [id number] 0 2015 15:04:17 2015 15:41:34 Anterior knee pain 268854174 Hypothyroidism 02113221 Obesity 030923006 [id number] Melissa Mcfadden MD [facility] (Adult Med) [address] [place] [address] [id number] 0 07/26/2015 12:03:48 07/26/2015 13:27:55 Anterior knee pain 073933439 M25.569 Asthma 395587576 J45.90 9 Hypothyroidism 11176240 E03.9 Obesity 401551572 E66.9 Carrier of cystic fibrosis gene mutation 170416740 Z14.1 Administra tion of influenza vaccine 69518223 Z23 [id number] [facility] [address] [place] [address] [id number] 0 08/30/2015 14:21:28 08/31/2015 09:50:13 Acute bronchitis 86189878 J20.9 Asthma 722807082 J45.90 9 Obesity 095474029 E66.9 Migraine 48746816 G43.90 9 [id number] MD [facility] (Adult Med) [address] [place] [address] [id number] 0 09/28/2015 11:54:54 09/29/2015 12:30:18 Asthma 142476412 J45.909 Lesion of scalp 70582976 91 00 L98.9 Obesity 995290108 E66.9 Tinea corporis 83410570 B35.4 [id number] Melissa Mcfadden MD [facility] (Adult Med) [address] [place] [address] [id number] 0 01/05/2016 12:11:53 01/05/2016 17:29:29 Acute bronchitis 84521619 J20.9 Asthma 471398607 J45.90 9 Carrier of cystic fibrosis gene mutation 407306639 Z14.1 [id number] Melissa Mcfadden MD [facility] (Adult Med) [address] [place] [address] [id number] 0 08/02/2016 12:08:29 08/02/2016 13:35:50 Furuncle 256439812 L02.92 [id number] Melissa Mcfadden MD [facility] (Adult Med) [address] [place] [address] [id number] 01/01/2017 16:08:52 01/02/2017 13:36:19 Acute bronchitis 20989081 J20.9 Asthma 051291602 J45.90 9 Morbid obesity 548690719 E66.01 Diet, exercise and lose weight she agreed. [id number] MD [facility] (Adult Med) [address] [place] [address] [id number] 0 07/17/2017 14:46:25 07/18/2017 11:47:32 Acute bronchitis 20873076 J20.9 Cellulitis 965861226 L03 .90 Will be put on cipro 500 mg twice/day for 10 dys. Asthma 640845069 J45.90 9 MD [facility] (Adult Med) [address] [place] [address] [id number] 0 12/27/2017 11:42:08 12/27/2017 13:43:17 Asthma 822606201 J45.909 On inhalers. Ex-smoker 0815679 Z87.89 1 Morbid obesity 115474338 E66.01 Diet, exercise and lose weight she agreed. williing to try naltrexone and wellbutrin sr to lose weight. [id number] MD [facility] (Adult Med) [address] [place] [address] [id number] 0 03/07/2018 16:51:35 03/11/2018 11:54:37 Asthmatic bronchitis 652838559 J45.909 Go to ER any time for any concern she understood and agreed. [id number] MD [facility] (Adult Med) [address] [place] [address] [id number] 07/23/2018 12:13:26 07/24/2018 09:48:30 Acute bronchitis 86566666 J20.9 Asthma 919917972 J45.90 9 On inhalers. [id number] MD [facility] (Adult Med) [address] [place] [address] [id number] 0 03/05/2019 16:00:57 03/05/2019 17:30:54 Acute otitis media 2722287 H66.91 Acute bronchitis 8838784 2 J20.9 Asthma 575947040 J45.90 9 On inhalers. [id number] MD [facility] (Adult Med) [address] [place] [address] [id number] 0 07/23/2019 16:29:19 07/23/2019 18:02:08 Acute respiratory infections 919953449 J22 She wants steroid pill aling with antibiotic s. [id number] [facility] (Adult Med) [address] [place] [address] [id number] 0 02/05/2020 10:43:01 02/08/2020 12:27:27 Asthma 133653856 J45.909 Hx of well controlled asthmaUses her albuterol inhaler infrequent ly, usually only a couple times per month- continue with albuterol inhaler and nebulizer- continue with maintenanc e inhaler Acute resp iratory infections 820382683 J22 Complainin g of a head cold [...] extra rest and do not over-exert yourself. [id number] MD [facility] (Adult Med) [address] [place] [address] [id number] 0 11/14/2020 08:25:17 11/15/2020 08:30:32 Acute exacerbation of chronic obstructive pulmonary disease 667407540 J44.1 dISCUSSED WITH PATIENT, SHE wants MEDICATION S refilledD BELOW. [id number] MD [facility] (Adult Med) [address] [place] [address] [id number] 0 05/08/2021 14:14:20 05/15/2021 22:13:48 Acute otitis media 8538677 H66.91 Discussed wit patient, she agreed as ordered. Asthma 587622350 J45.90 9 On inhalers. [id number] MD [facility] (Adult Med) [address] [place] [address] [id number] 0 05/26/2021 12:11:46 05/29/2021 12:36:11 Acute exacerbation of chronic obstructive pulmonary disease 666509348 J44.1 DISCUSSED WITH PATIENT, SHE wants MEDICATION S refill BELOW. Advised her to go to ER any time for any concern. She agreed. Chronic ob structive pulmonary disease 87039481 J44.9 Has inhalers at home. [id number] MD [facility] (Adult Med) [address] [place] [address] 08/07/2021 08:21:56 08/09/2021 14:17:58 Acute bronchitis 71913951 J20.9 [place] cold , discussed with patient, declines covid virus test. Wants abx , steroid and refill med. Asthma 541772184 J45.90 9 On inhalers. [id number] MD [facility] (Adult Med) [address] [place] [address] 08/11/2021 12:31:54 08/15/2021 15:13:08 Hypertensive disorder 43641128 I10 Advised to stay on low salt diet, avoid NSAID such as ibuprofen, naproxen or OTC decongesta nt if possible. Seasonal allergy 6109151 04 J30.2 Will try some medication s as ordered today. Health Concerns Section Related Observation LastModified by Organization Detai ls LastModified Time None Recorded Concern Status LastModified by Organization Details LastModified Time None Recorded Advance Directives Directive None Recorded Payers Insurance Date Sequence Insurance Name Policy Number Policy Miranda Covered Member ID Miranda Member ID Guarantor Name 08/15/2021 1 [facility] (MEDICAID HMO) [id number] Noris Casas [id number] Noris Casas 07/24/2018 2 *SELF PAY* Br rosaline Casas Notes Date Note Type Note Provider [...] AGREES. Melissa Mcfadden MD Attn: Accounting[address] [place], [address], [facility] 11/14/2020 12:07:52 05/08/2021 text/html Phone visit, due to torres virus pandemic, she understood and agreed, allergic to penicillins and theophylline, C/C ear hurting , wants to try some abx and refill other regular medications. Melissa Mcfadden MD Attn: Accounting[address] [facility], [place], [address], [place] - [facility] 05/08/2021 15:02:47 05/26/2021 text/html Phone visit, due to torres virus pandemic, allergic to penicllins and theophylline. histroy of COPD and former smoker , had covid infection in February 2021, recently chest congestion, wants abx and short term steroid, declines re- test covid 19. Melissa Mcfadden MD Attn: Accounting[address] [facility], [place], [address], [place] [facility] 05/26/2021 14:05:45 08/07/2021 text/html Phone visit, due to torres virus pandemic., allergic to penicillins and theophylline, C/C Chest cold, chest congestion, no fever, declines for covid test, wants refill her regular medications and ABX and shortterm steroid. Melissa Mcfadden MD Attn: Accounting[address] [facility], [place], [address], [place] [facility] 08/07/2021 11:05:19 08/11/2021 text/html [...] informed. Melissa Mcfadden MD Attn: Accounting[address] [facility], [place], [address], [place] [facility] 08/11/2021 13:10:00 OBGyn Episode No OBEpisode recorded.
--- NOTE | 2025-04-01 07:18 | WPDHPUPDATE1 ---
History and Physical Update Update Date/Time: 04/01/25 07:18 History and Physical has been reviewed, including an updated exam of the patient. There are NO changes in the patient's condition. Risks, benefits, and alternatives have been discussed and questions answered. Patient agrees to proceed with procedure.
--- NOTE | 2025-04-01 08:09 | WPDANESEPPF ---
Anes - Initial Pre Proc Eval Procedure: Operation Date: 04/01/25 09:15 Proposed Procedures p Bilateral Laparoscopic Salpingectomy - Horacio Alvarez MD Date/Time: 04/01/25 08:09 Surgeon: Horacio Alvarez MD Pre Op Diagnosis: desires sterilization Patient Data Age: 39 Gender: F Height: Weight: Allergies Allergy/AdvReac Type Severity Reaction Status Date / Time Penicillins Allergy Unknown Swelling Verified 03/24/25 14:19 of Lip/Tongue/Throat THEOPHYLLINE ANHYDROUS Allergy Mild Unknown Uncoded 03/24/25 14:19 Home Medications ?Medication ?Instructions ?Recorded ?Confirmed ?Type losartan 25 mg tablet 25 mg PO DAILY 12/20/21 03/24/25 History montelukast 10 mg tablet 10 mg PO DAILY 12/20/21 03/24/25 History albuterol 90 mcg/actuation aerosol 90 mcg inhalation Q6-8H PRN dyspnea 02/12/23 03/24/25 History inhaler budesonide-formoterol HFA 160 1 inh inhalation BID 02/12/23 03/24/25 History mcg-4.5 mcg/actuation aerosol inhaler (Symbicort) tiotropium bromide 2.5 2 puff inhalation DAILY 02/12/23 03/24/25 History mcg/actuation mist for inhalation (Spiriva Respimat) celecoxib 200 mg capsule (Celebrex) 200 mg PO DAILY 02/23/25 03/24/25 History albuterol sulfate 2.5 mg/3 mL 2.5 mg inhalation Q8H PRN 03/02/25 03/24/25 History (0.083 %) solution for nebulization shortness of breath or wheezing cholecalciferol (vitamin D3) 50 50 mcg PO DAILY 03/02/25 03/24/25 History mcg (2,000 unit) capsule cyanocobalamin (vitamin B-12) 1,000 mcg PO BID 03/02/25 03/24/25 History 1,000 mcg tablet (Vitamin B-12) ibuprofen 600 mg tablet 600 mg PO TID PRN pain 03/23/25 03/24/25 History omeprazole 40 mg capsule,delayed 40 mg PO DAILY 03/23/25 03/24/25 History release Patient hx anesthesia problems: none Family hx anesthesia problems: none Results Review: All pre-operative results and documents have been reviewed as part of the pre-operative evaluation. [facility] Past Medical History Medical History Screening mammogram, encounter for Cyst (11/25/15) cyst removed from top of head Pneumonia GERD (gastroesophageal reflux disease) Migraines Bronchitis Asthma Normal colposcopy Surgical History Surgical History History of hysteroscopy (03/11/25) Hysteroscopy with uterine curettings 2. Elvia endometrial ablation History of colposcopy History of tonsillectomy History of tubal ligation History of cryosurgery Family History Family History Mother Diabetes mellitus Hypertension Father Heart disease Grandparent Lung cancer maternal grandmother Social History Social History Years smoked: 12 Smoking status: Former smoker Tobacco type: e-cigarettes/vaping Smoking end date: 03/02/12 Additional smoking assessment comments: 1 vape lasts 7 days Alcohol intake: never Substance use: never Substance use type: does not use Do You Feel Safe in your Home?: Yes Lack of Transportation: No Lack of Food: Never True Current Housing: Decline to Answer Concerned About Future Housing: Decline to Answer Difficulty Paying Gas/Electric Bills: Decline to Answer Difficulty Paying for Meds: Decline to Answer Currently Unemployed: Decline to Answer Education: Decline to Answer Difficulty w/ Childcare or Family Care: Decline to Answer Living arrangements: with family Additional living arrangements comments: 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 Gender identity (if verbalized by the patient): Female Sexual Orientation (if Verbalized by the Patient): Straight or Heterosexual Spiritual care concerns: No Anes - Eval Final PreProcedure Day of Procedure 04/01/25 08:09 Patient weight: obese Heart: regular rate and rhythm Lungs: wheezes Airway: Mallampati scale Neurological: alert and oriented Last oral intake: >/= 8 hours ASA classification: III Emergent: no Anesthetic plan: proceed Anesthesia type and monitoring: general ETT and standard monitoring Results Review: All pre-operative results and documents have been reviewed as part of the pre-operative evaluation. Informed Consent: The patient's anesthetic plan and its attendant risks and benefits were discussed with the patient/family/POA. Questions were solicited and answers provided to the satisfaction of the patient/family/POA.
[2025-04-01] MEDS: LACTATED RINGERS 1,000 ML 30 ML IV CONT ×2 (08:24→10:03)
[2025-04-01] MEDS: KETOROLAC 15 MG/ML VIAL (*BKC) IV PUSH (08:24)
[2025-04-01] MEDS: ACETAMINOPHEN 500 MG TABLET 1000 MG PO (08:24)
[2025-04-01 08:25] LABS: BEDSIDEPREGUCG Negative (Negative)
[2025-04-01] MEDS: ALBUTEROL SULFATE NEB 2.5 MG/3 ML INH INHALATION (08:35)
--- NOTE | 2025-04-01 09:46 | S_PTH ---
PATIENT: Yoselin Casas LOC: [facility] U#:[id number] AGE/SX: 39/F ROOM: RE04/01/[address]: Horacio Alvarez MD : 1985 BED: DIS: 04/01/2025 SPEC #: [id number] RECD: 04/01/25 10:37 STATUS: ISRA REQ #: [id number] AUDRA: 04/01/25 09:[address]: Horacio Alvarez DEPT: [facility] Surgical RECD BY: Sapphire Monroe ENTERED: 04/01/25 10:37 SP TYPE: Surgical OTHR DR: Chet Franklin, PA Tissues: A - Fallopian Tube Bilateral Procedures: Gross and Microscopic Level 2 Hematoxylin and Eosin Stain
--- NOTE | 2025-04-01 09:58 | P.OP_ITS ---
Procedure Note - Detailed Date of Procedure 04/01/25 Pre-op Diagnosis desires sterilization Post-op Diagnosis Same Procedure Performed Bilateral laparoscopic salpingectomy Surgeon Horacio Alvarez MD Anesthesia General Findings Uterus tubes and ovaries without abnormality other than evidence of Filshie clip on the right fallopian tube Description of Procedure Patient prepped draped usual manner for this procedure. Cervical instruments were placed for uterine mobility throughout the case. Abdominal trocar sites were marked and placed under direct visualization. Pelvis was evaluated and mesial salpinx bilaterally cauterized and cut and tubes removed without difficulty. Also Filshie clip was noted on the right tube which was removed without difficulty as well. Gas was allowed to escape incisions approximated 4- 0 Monocryl patient was sent to recovery room in stable condition. Estimated Blood Loss 10 Drains No Packing No Pathology Yes Complications No immediate complications Condition Stable Disposition PACU [facility] Billing Surgery - Charge Forward: Surgery Billing
[2025-04-01] MEDS: fentaNYL CITRATE INJ (*CRX) 100 MCG/2 ML VIAL 25 MCG IV PUSH ×2 (10:29→10:41)
[2025-04-01] MEDS: oxyCODONE HCL (*CRX) 5 MG TAB IR PO (11:40)
== END 2025-04-01 12:38 | disposition home or self-care (01) ==
PROVIDERS: PCP Physician Assistant; Visit Provider Obstetrics & Gynecology
PROC: (CPT 49320; principal; 2025-04-01 09:15)
DX: Z30.2 Encounter for sterilization (principal); N83.8 Other noninflammatory disorders of ovary, fallopian tube and broad ligament; N93.9 Abnormal uterine and vaginal bleeding, unspecified
CPT/HCPCS: 58661; 88302; 94640; A9270; J1100; J1885; J2250; J2405; J2704; J3010; J7030; J7120